=== PATIENT | female | born 1970 | race American Indian/Alaskan Native ===

== ENCOUNTER 2019-10-06 01:22 | Inpatient (IN) | payer OTHER ==
[2019-10-06 02:24] LABS: Hematocrit 33.8 % (30.3-42.9); Hemoglobin 11.1 gm/dl (10.1-14.3); Mean Corpuscular HGB Conc 33 % (30-34); Mean Corpuscular Volume 76 fl (79-97); Platelet Count 335 K/mm3 (140-440); Red Blood Count 4.42 M/mm3 (3.65-5.03); Red Cell Distribution Width 15.7 % (13.2-15.2)
[2019-10-06 02:49] LABS: Albumin 4.6 g/dL (3.9-5)
[2019-10-06 03:41] LABS: Band Neutrophils # (Manual) 0.6 K/mm3; Basophils % (Manual) 0 % (0.0-1.8); Eosinophils % (Manual) 0 % (0.0-4.3); Hypochromasia 1+; Total Cells Counted 100
[2019-10-06 03:42] LABS: Platelet Estimate Consistent w Auto; Target Cells Few
[2019-10-06] MEDS ORDERED: SODIUM CHLORIDE 0.9% 1000 ML IV SOLN IV ONE (04:33)
[2019-10-06] MEDS ORDERED: MORPHINE 4 MG/1 ML INJ IV ONE (04:34)
[2019-10-06] MEDS ORDERED: ONDANSETRON 4 MG/2 ML INJ IV ONE (04:34)
--- NOTE | 2019-10-06 04:36 | Event Note ---
Date: 10/06/19 Medical screening examination: 49-year-old female, denies past medical history, presenting with epigastric, right upper quadrant pain that radiates to the back, nausea and vomiting. She is fairly tender, with a positive Rowan sign. Found to be tachycardic, with a leukocytosis, left shift and elevated band percentage. Concerning for biliary pathology. Patient to be resuscitated per the sepsis pathway, antibiotics ordered, pain medication, nausea medication ordered, right upper quadrant ultrasound ordered, additional laboratory studies ordered, anticipated admission, will likely require evaluation by either gastroenterology, general surgery or both. Vital Signs 10/06/19 10/06/19 01:38 01:39 Temperature 98.3 F Pulse Rate 94 H Blood Pressure 105/66 O2 Sat by Pulse 99 Oximetry Lab Results 10/06/19 10/06/19 Range/Units 01:57 01:57 WBC 14.7 H (4.5-11.0) K/mm3 RBC 4.42 (3.65-5.03) M/mm3 Hgb 11.1 (10.1-14.3) gm/dl Hct 33.8 (30.3-42.9) % MCV 76 L (79-97) fl MCH 25 L (28-32) pg MCHC 33 (30-34) % RDW 15.7 H (13.2-15.2) % Plt Count 335 (140-440) K/mm3 Add Manual Diff Complete Total Counted 100 Seg Neutrophils % Materials Specialist Seg Neuts % (Manual) 88.0 H (40.0-70.0) % Band Neutrophils % 4.0 % Lymphocytes % (Manual) 7.0 L (13.4-35.0) % Reactive Lymphs % (Man) 0 % Monocytes % (Manual) 1.0 (0.0-7.3) % Eosinophils % (Manual) 0 (0.0-4.3) % Basophils % (Manual) 0 (0.0-1.8) % Metamyelocytes % 0 % Myelocytes % 0 % Promyelocytes % 0 % Blast Cells % 0 % Nucleated RBC % Not Reportable Seg Neutrophils # Man 12.9 H (1.8-7.7) K/mm3 Band Neutrophils # 0.6 K/mm3 Lymphocytes # (Manual) 1.0 L (1.2-5.4) K/mm3 Abs React Lymphs (Man) 0.0 K/mm3 Monocytes # (Manual) 0.1 (0.0-0.8) K/mm3 Eosinophils # (Manual) 0.0 (0.0-0.4) K/mm3 Basophils # (Manual) 0.0 (0.0-0.1) K/mm3 Metamyelocytes # 0.0 K/mm3 Myelocytes # 0.0 K/mm3 Promyelocytes # 0.0 K/mm3 Blast Cells # 0.0 K/mm3 WBC Morphology Not Reportable Hypersegmented Neuts Not Reportable Hyposegmented Neuts Not Reportable Hypogranular Neuts Not Reportable Smudge Cells Not Reportable Toxic Granulation Not Reportable Toxic Vacuolation Not Reportable Dohle Bodies Not Reportable Pelger-Huet Anomaly Not Reportable Meg Rods Not Reportable Platelet Estimate Consistent w auto Clumped Platelets Not Reportable Plt Clumps, EDTA Not Reportable Large Platelets Not Reportable Giant Platelets Not Reportable Platelet Satelliting Not Reportable Plt Morphology Comment Not Reportable RBC Morphology Not Reportable Dimorphic RBCs Not Reportable Polychromasia Not Reportable Hypochromasia 1+ Poikilocytosis Not Reportable Anisocytosis Not Reportable Microcytosis Not Reportable Macrocytosis Not Reportable Spherocytes Not Reportable Pappenheimer Bodies Not Reportable Sickle Cells Not Reportable Target Cells Few Tear Drop Cells Not Reportable Ovalocytes Not Reportable Helmet Cells Not Reportable Chaves-Ferney Bodies Not Reportable Brewster Rings Not Reportable Buchanan Cells Not Reportable Bite Cells Not Reportable Crenated Cell Not Reportable Elliptocytes Not Reportable Acanthocytes (Spur) Not Reportable Rouleaux Not Reportable Hemoglobin C Crystals Not Reportable Schistocytes Not Reportable Malaria parasites Not Reportable Benoit Bodies Not Reportable Hem Pathologist Commnt No Sodium 141 (137-145) mmol/L Potassium 4.3 (3.6-5.0) mmol/L Chloride 101.6 (98-107) mmol/L Carbon Dioxide 19 L (22-30) mmol/L Anion Gap 25 mmol/L BUN 16 (7-17) mg/dL Creatinine 1.1 (0.7-1.2) mg/dL Estimated GFR 52 ml/min BUN/Creatinine Ratio 15 % Glucose 145 H (65-100) mg/dL Calcium 10.0 (8.4-10.2) mg/dL Total Bilirubin 1.60 H (0.1-1.2) mg/dL AST 1619 H (5-40) units/L ALT 698 H (7-56) units/L Alkaline Phosphatase 335 H (35-129) units/L Total Protein 7.9 (6.3-8.2) g/dL Albumin 4.6 (3.9-5) g/dL Albumin/Globulin Ratio 1.4 %
[2019-10-06] MEDS ORDERED: PIPERACIL/TAZOBACTA 4.5/NS 100 4.5 GM/100 ML VIAL IV ONE (05:00)
--- NOTE | 2019-10-06 05:09 | XRay Report ---
CHEST 1 VIEW INDICATION / CLINICAL INFORMATION: abd pain n/v. COMPARISON: None available. FINDINGS: SUPPORT DEVICES: None. HEART / MEDIASTINUM: No significant abnormality. LUNGS / PLEURA: No significant pulmonary or pleural abnormality.. No pneumothorax. ADDITIONAL FINDINGS: No significant additional findings. IMPRESSION: 1. No acute findings. Signer Name: Buster Dang MD Signed: 10/06/2019 5:04 AM Workstation Name: [id number]
[2019-10-06 05:46] LABS: Hepatitis B Surface Antigen Non-Reactive (Negative); Hepatitis C Virus Antibody Non-Reactive (NonReactive)
[2019-10-06 05:49] LABS: INR 1.01 (0.87-1.13)
[2019-10-06 05:50] LABS: Partial Thromboplastin Time 25.4 Sec. (24.2-36.6)
--- NOTE | 2019-10-06 06:07 | Ultrasound Report ---
ULTRASOUND ABDOMEN, LIMITED (RIGHT UPPER QUADRANT) INDICATION: ruq pain. COMPARISON: None available. FINDINGS: Pancreas: Visualized portion shows no significant abnormality. Liver: Normal. Gallbladder: Gallbladder wall is mildly thickened. This is not specific. There is cholelithiasis. The re is sludge in the lumen of the gallbladder. Bile ducts: Normal. Common Bile Duct measures 5 mm. Free fluid: None. Additional Findings: None. IMPRESSION: 1. There is cholelithiasis. There is sludge in the lumen of the gallbladder. The gallbladder wall is mildly thickened. This is not specific in the setting of stones. If cholecyst itis is a clinical concern, nuclear medicine HIDA scan can be performed to further evaluate. Signer Name: Buster Dang MD Signed: 10/06/2019 6:02 AM Workstation Name: [id number]
[2019-10-06 06:15] LABS: Bilirubin,Urine NEG (Negative); Blood,Urine NEG (Negative); Color,Urine Amber (Yellow); Mucus,Urine 3+ /HPF
--- NOTE | 2019-10-06 07:12 | Emergency Department Report ---
ED Abdominal Pain HPI - General Chief Complaint: Abdominal Pain Stated Complaint: ABD PAIN Time Seen by Provider: 10/06/19 06:16 Source: patient, EMS Mode of arrival: Wheelchair Limitations: No Limitations - History of Present Illness Initial Comments: This is a very pleasant 49-year-old female that reports right upper quadrant to mid abdominal pain which does not radiate which she has had for months. It became worse last night. She vomited. She does not report any fever or chills. She states that the pain has been postprandial in the past. She is not consulted with the physician up until last night when it became worse. She is not currently nauseated. She doesn't report any signs of GI bleeding. Pain is a dull ache when present. MD Complaint: abdominal pain -: Gradual, month(s) Location: RUQ, epigastric Radiation: none Migration to: no migration Severity: moderate Severity scale (0 -10): 7 Quality: aching Consistency: intermittent Improves With: nothing Worsens With: eating Associated Symptoms: denies other symptoms, nausea, vomiting - Related Data Allergies Allergy/AdvReac Type Severity Reaction Status Date / Time No Known Allergies Allergy Verified 10/06/19 01:39 ED Review of Systems ROS: Stated complaint: ABD PAIN Other details as noted in HPI Constitutional: denies: chills, fever Eyes: denies: eye pain, eye discharge, vision change ENT: denies: ear pain, throat pain Respiratory: denies: cough, shortness of breath, wheezing Cardiovascular: denies: chest pain, palpitations Endocrine: no symptoms reported Gastrointestinal: abdominal pain, nausea, vomiting. denies: diarrhea Genitourinary: denies: urgency, dysuria, discharge Musculoskeletal: denies: back pain, joint swelling, arthralgia Skin: denies: rash, lesions Neurological: denies: headache, weakness, paresthesias Psychiatric: denies: anxiety, depression Hematological/Lymphatic: denies: easy bleeding, easy bruising ED Past Medical Hx - Past Medical History Previous Medical History?: No - Surgical History Past Surgical History?: No - Social History Smoking Status: Current Every Day Smoker Substance Use Type: None ED Physical Exam - General Limitations: No Limitations General appearance: alert, in no apparent distress - Head Head exam: Present: atraumatic, normocephalic - Eye Eye exam: Present: normal appearance. Absent: scleral icterus - ENT ENT exam: Present: mucous membranes moist - Neck Neck exam: Present: normal inspection - Respiratory Respiratory exam: Present: normal lung sounds bilaterally. Absent: respiratory distress - Cardiovascular Cardiovascular Exam: Present: regular rate, normal rhythm. Absent: systolic murmur, diastolic murmur, rubs, gallop - GI/Abdominal GI/Abdominal exam: Present: soft, tenderness (mild right upper quadrant, negative Rowan's, no guarding), normal bowel sounds. Absent: distended, guarding, rebound, rigid, organomegaly, mass, bruit, pulsatile mass, hernia - Extremities Exam Extremities exam: Present: normal inspection - Back Exam Back exam: Present: normal inspection - Neurological Exam Neurological exam: Present: alert, oriented X3, CN II-XII intact. Absent: motor sensory deficit - Psychiatric Psychiatric exam: Present: normal affect, normal mood - Skin Skin exam: Present: warm, dry, intact, normal color. Absent: rash ED Course Vital Signs 10/06/19 10/06/19 10/06/19 01:38 01:39 04:10 Temperature 98.3 F Pulse Rate 94 H 128 H Respiratory 17 Rate Blood Pressure 105/66 Blood Pressure [Right] O2 Sat by Pulse 99 Oximetry 10/06/19 10/06/19 10/06/19 04:15 04:30 04:46 Temperature Pulse Rate 99 H 109 H 115 H Respiratory 16 22 20 Rate Blood Pressure 124/72 127/66 127/66 Blood Pressure [Right] O2 Sat by Pulse Oximetry 10/06/19 10/06/19 10/06/19 05:00 05:15 05:30 Temperature Pulse Rate 118 H 107 H 104 H Respiratory 21 17 13 Rate Blood Pressure 127/66 112/58 112/58 Blood Pressure [Right] O2 Sat by Pulse Oximetry 10/06/19 10/06/19 10/06/19 05:58 07:28 08:21 Temperature 98.5 F 98.5 F Pulse Rate 97 H 62 Respiratory 16 16 16 Rate Blood Pressure Blood Pressure 113/38 119/77 [Right] O2 Sat by Pulse 100 100 Oximetry - Reevaluation(s) Reevaluation #1: Patient had been given Zosyn by my predecessor a consideration of her lactic acid level of 4. On my evaluation she does not look toxic. Certainly she may have cholecystitis although she does not have a fever or a white count. Her ultrasound did show wall thickening but no pericholecystic fluid. There was a problem getting her lipase. It is now reported as greater than 299. It is unknown what the actual level is. I have spoke to Dr. Umana informing him of the consult which has been placed by Doctor Art. A CT abdomen and pelvis has been performed. It shows possible cholecystitis. The pancreas appeared normal. Her lactic acid level for his bit curious. I will repeat it. The patient has been admitted. 10/06/19 08:32 ED Medical Decision Making - Lab Data Result diagrams: 10/06/19 01:57 10/06/19 01:57 Laboratory Results - last 24 hr 10/06/19 10/06/19 10/06/19 01:57 01:57 04:58 WBC 14.7 H RBC 4.42 Hgb 11.1 Hct 33.8 MCV 76 L MCH 25 L MCHC 33 RDW 15.7 H Plt Count 335 Add Manual Diff Complete Total Counted 100 Seg Neutrophils % [place] Seg Neuts % (Manual) 88.0 H Band Neutrophils % 4.0 Lymphocytes % (Manual) 7.0 L Reactive Lymphs % (Man) 0 Monocytes % (Manual) 1.0 Eosinophils % (Manual) 0 Basophils % (Manual) 0 Metamyelocytes % 0 Myelocytes % 0 Promyelocytes % 0 Blast Cells % 0 Nucleated RBC % Not Reportable Seg Neutrophils # Man 12.9 H Band Neutrophils # 0.6 Lymphocytes # (Manual) 1.0 L Abs React Lymphs (Man) 0.0 Monocytes # (Manual) 0.1 Eosinophils # (Manual) 0.0 Basophils # (Manual) 0.0 Metamyelocytes # 0.0 Myelocytes # 0.0 Promyelocytes # 0.0 Blast Cells # 0.0 WBC Morphology Not Reportable Hypersegmented Neuts Not Reportable Hyposegmented Neuts Not Reportable Hypogranular Neuts Not Reportable Smudge Cells Not Reportable Toxic Granulation Not Reportable Toxic Vacuolation Not Reportable Dohle Bodies Not Reportable Pelger-Huet Anomaly Not Reportable Meg Rods Not Reportable Platelet Estimate Consistent w auto Clumped Platelets Not Reportable Plt Clumps, EDTA Not Reportable Large Platelets Not Reportable Giant Platelets Not Reportable Platelet Satelliting Not Reportable Plt Morphology Comment Not Reportable RBC Morphology Not Reportable Dimorphic RBCs Not Reportable Polychromasia Not Reportable Hypochromasia 1+ Poikilocytosis Not Reportable Anisocytosis Not Reportable Microcytosis Not Reportable Macrocytosis Not Reportable Spherocytes Not Reportable Pappenheimer Bodies Not Reportable Sickle Cells Not Reportable Target Cells Few Tear Drop Cells Not Reportable Ovalocytes Not Reportable Helmet Cells Not Reportable Chaves-Premont Bodies Not Reportable [place] Rings Not Reportable [place] Cells Not Reportable Bite Cells Not Reportable Crenated Cell Not Reportable Elliptocytes Not Reportable Acanthocytes (Spur) Not Reportable Rouleaux Not Reportable Hemoglobin C Crystals Not Reportable Schistocytes Not Reportable Malaria parasites Not Reportable Benoit Bodies Not Reportable Hem Pathologist Commnt No PT 13.4 INR 1.01 APTT 25.4 Sodium 141 Potassium 4.3 Chloride 101.6 Carbon Dioxide 19 L Anion Gap 25 BUN 16 Creatinine 1.1 Estimated GFR 52 BUN/Creatinine Ratio 15 Glucose 145 H Lactic Acid Calcium 10.0 Magnesium Total Bilirubin 1.60 H AST 1619 H ALT 698 H Alkaline Phosphatase 335 H Total Creatine Kinase Total Protein 7.9 Albumin 4.6 Albumin/Globulin Ratio 1.4 Urine Color Urine Turbidity Urine pH Ur Specific Novelty Urine Protein Urine Glucose (UA) Urine Ketones Urine Blood Urine Nitrite Urine Bilirubin Urine Urobilinogen Ur Leukocyte Esterase Urine WBC (Auto) Urine RBC (Auto) U Epithel Cells (Auto) Urine Mucus Acetaminophen Hepatitis A IgM Ab Hep Bs Antigen Hep B Core IgM Ab Hepatitis C Antibody 10/06/19 10/06/19 10/06/19 04:58 04:58 04:58 WBC RBC Hgb Hct MCV MCH MCHC RDW Plt Count Add Manual Diff Total Counted Seg Neutrophils % Seg Neuts % (Manual) Band Neutrophils % Lymphocytes % (Manual) Reactive Lymphs % (Man) Monocytes % (Manual) Eosinophils % (Manual) Basophils % (Manual) Metamyelocytes % Myelocytes % Promyelocytes % Blast Cells % Nucleated RBC % Seg Neutrophils # Man Band Neutrophils # Lymphocytes # (Manual) Abs React Lymphs (Man) Monocytes # (Manual) Eosinophils # (Manual) Basophils # (Manual) Metamyelocytes # Myelocytes # Promyelocytes # Blast Cells # WBC Morphology Hypersegmented Neuts Hyposegmented Neuts Hypogranular Neuts Smudge Cells Toxic Granulation Toxic Vacuolation Dohle Bodies Pelger-Huet Anomaly Meg Rods Platelet Estimate Clumped Platelets Plt Clumps, EDTA Large Platelets Giant Platelets Platelet Satelliting Plt Morphology Comment RBC Morphology Dimorphic RBCs Polychromasia Hypochromasia Poikilocytosis Anisocytosis Microcytosis Macrocytosis Spherocytes Pappenheimer Bodies Sickle Cells Target Cells Tear Drop Cells Ovalocytes Helmet Cells Chaves-Premont Bodies [place] Rings Francis Cells Bite Cells Crenated Cell Elliptocytes Acanthocytes (Spur) Rouleaux Hemoglobin C Crystals Schistocytes Malaria parasites Benoit Bodies Hem Pathologist Commnt PT INR APTT Sodium Potassium Chloride Carbon Dioxide Anion Gap BUN Creatinine Estimated GFR BUN/Creatinine Ratio Glucose Lactic Acid 4.00 H* Calcium Magnesium 1.80 Total Bilirubin AST ALT Alkaline Phosphatase Total Creatine Kinase 61 Total Protein Albumin Albumin/Globulin Ratio Urine Color Urine Turbidity Urine pH Ur Specific Novelty Urine Protein Urine Glucose (UA) Urine Ketones Urine Blood Urine Nitrite Urine Bilirubin Urine Urobilinogen Ur Leukocyte Esterase Urine WBC (Auto) Urine RBC (Auto) U Epithel Cells (Auto) Urine Mucus Acetaminophen Hepatitis A IgM Ab Non-reactive Hep Bs Antigen Non-reactive Hep B Core IgM Ab Non-reactive Hepatitis C Antibody Non-reactive 10/06/19 10/06/19 04:58 05:52 WBC RBC Hgb Hct MCV MCH MCHC RDW Plt Count Add Manual Diff Total Counted Seg Neutrophils % Seg Neuts % (Manual) Band Neutrophils % Lymphocytes % (Manual) Reactive Lymphs % (Man) Monocytes % (Manual) Eosinophils % (Manual) Basophils % (Manual) Metamyelocytes % Myelocytes % Promyelocytes % Blast Cells % Nucleated RBC % Seg Neutrophils # Man Band Neutrophils # Lymphocytes # (Manual) Abs React Lymphs (Man) Monocytes # (Manual) Eosinophils # (Manual) Basophils # (Manual) Metamyelocytes # Myelocytes # Promyelocytes # Blast Cells # WBC Morphology Hypersegmented Neuts Hyposegmented Neuts Hypogranular Neuts Smudge Cells Toxic Granulation Toxic Vacuolation Dohle Bodies Pelger-Huet Anomaly Meg Rods Platelet Estimate Clumped Platelets Plt Clumps, EDTA Large Platelets Giant Platelets Platelet Satelliting Plt Morphology Comment RBC Morphology Dimorphic RBCs Polychromasia Hypochromasia Poikilocytosis Anisocytosis Microcytosis Macrocytosis Spherocytes Pappenheimer Bodies Sickle Cells Target Cells Tear Drop Cells Ovalocytes Helmet Cells Chaves-Premont Bodies [place] Cells Bite Cells Crenated Cell Elliptocytes Acanthocytes (Spur) Rouleaux Hemoglobin C Crystals Schistocytes Malaria parasites Benoit Bodies Hem Pathologist Commnt PT INR APTT Sodium Potassium Chloride Carbon Dioxide Anion Gap BUN Creatinine Estimated GFR BUN/Creatinine Ratio Glucose Lactic Acid Calcium Magnesium Total Bilirubin AST ALT Alkaline Phosphatase Total Creatine Kinase Total Protein Albumin Albumin/Globulin Ratio Urine Color Emilia Urine Turbidity Cloudy Urine pH 5.0 Ur Specific Novelty 1.033 H Urine Protein 30 mg/dl Urine Glucose (UA) Neg Urine Ketones Tr Urine Blood Neg Urine Nitrite Neg Urine Bilirubin Neg Urine Urobilinogen 2.0 Ur Leukocyte Esterase Sm Urine WBC (Auto) 2.0 Urine RBC (Auto) 4.0 U Epithel Cells (Auto) 35.0 H Urine Mucus 3+ Acetaminophen < 5.0 L Hepatitis A IgM Ab Hep Bs Antigen Hep B Core IgM Ab Hepatitis C Antibody Laboratory Results - last 24 hr 10/06/19 10/06/19 10/06/19 01:57 01:57 04:58 WBC 14.7 H RBC 4.42 Hgb 11.1 Hct 33.8 MCV 76 L MCH 25 L MCHC 33 RDW 15.7 H Plt Count 335 Add Manual Diff Complete Total Counted 100 Seg Neutrophils % [place] Seg Neuts % (Manual) 88.0 H Band Neutrophils % 4.0 Lymphocytes % (Manual) 7.0 L Reactive Lymphs % (Man) 0 Monocytes % (Manual) 1.0 Eosinophils % (Manual) 0 Basophils % (Manual) 0 Metamyelocytes % 0 Myelocytes % 0 Promyelocytes % 0 Blast Cells % 0 Nucleated RBC % Not Reportable Seg Neutrophils # Man 12.9 H Band Neutrophils # 0.6 Lymphocytes # (Manual) 1.0 L Abs React Lymphs (Man) 0.0 Monocytes # (Manual) 0.1 Eosinophils # (Manual) 0.0 Basophils # (Manual) 0.0 Metamyelocytes # 0.0 Myelocytes # 0.0 Promyelocytes # 0.0 Blast Cells # 0.0 WBC Morphology Not Reportable Hypersegmented Neuts Not Reportable Hyposegmented Neuts Not Reportable Hypogranular Neuts Not Reportable Smudge Cells Not Reportable Toxic Granulation Not Reportable Toxic Vacuolation Not Reportable Dohle Bodies Not Reportable Pelger-Huet Anomaly Not Reportable Meg Rods Not Reportable Platelet Estimate Consistent w auto Clumped Platelets Not Reportable Plt Clumps, EDTA Not Reportable Large Platelets Not Reportable Giant Platelets Not Reportable Platelet Satelliting Not Reportable Plt Morphology Comment Not Reportable RBC Morphology Not Reportable Dimorphic RBCs Not Reportable Polychromasia Not Reportable Hypochromasia 1+ Poikilocytosis Not Reportable Anisocytosis Not Reportable Microcytosis Not Reportable Macrocytosis Not Reportable Spherocytes Not Reportable Pappenheimer Bodies Not Reportable Sickle Cells Not Reportable Target Cells Few Tear Drop Cells Not Reportable Ovalocytes Not Reportable Helmet Cells Not Reportable Chaves-Premont Bodies Not Reportable [place] Rings Not Reportable [place] Cells Not Reportable Bite Cells Not Reportable Crenated Cell Not Reportable Elliptocytes Not Reportable Acanthocytes (Spur) Not Reportable Rouleaux Not Reportable Hemoglobin C Crystals Not Reportable Schistocytes Not Reportable Malaria parasites Not Reportable [place]oit Bodies Not Reportable Hem Pathologist Commnt No PT 13.4 INR 1.01 APTT 25.4 Sodium 141 Potassium 4.3 Chloride 101.6 Carbon Dioxide 19 L Anion Gap 25 BUN 16 Creatinine 1.1 Estimated GFR 52 BUN/Creatinine Ratio 15 Glucose 145 H Lactic Acid Calcium 10.0 Magnesium Total Bilirubin 1.60 H AST 1619 H ALT 698 H Alkaline Phosphatase 335 H Total Creatine Kinase Total Protein 7.9 Albumin 4.6 Albumin/Globulin Ratio 1.4 Lipase Urine Color Urine Turbidity Urine pH Ur Specific Novelty Urine Protein Urine Glucose (UA) Urine Ketones Urine Blood Urine Nitrite Urine Bilirubin Urine Urobilinogen Ur Leukocyte Esterase Urine WBC (Auto) Urine RBC (Auto) U Epithel Cells (Auto) Urine Mucus Acetaminophen Hepatitis A IgM Ab Hep Bs Antigen Hep B Core IgM Ab Hepatitis C Antibody 10/06/19 10/06/19 10/06/19 04:58 04:58 04:58 WBC RBC Hgb Hct MCV MCH MCHC RDW Plt Count Add Manual Diff Total Counted Seg Neutrophils % Seg Neuts % (Manual) Band Neutrophils % Lymphocytes % (Manual) Reactive Lymphs % (Man) Monocytes % (Manual) Eosinophils % (Manual) Basophils % (Manual) Metamyelocytes % Myelocytes % Promyelocytes % Blast Cells % Nucleated RBC % Seg Neutrophils # Man Band Neutrophils # Lymphocytes # (Manual) Abs React Lymphs (Man) Monocytes # (Manual) Eosinophils # (Manual) Basophils # (Manual) Metamyelocytes # Myelocytes # Promyelocytes # Blast Cells # WBC Morphology Hypersegmented Neuts Hyposegmented Neuts Hypogranular Neuts Smudge Cells Toxic Granulation Toxic Vacuolation Dohle Bodies Pelger-Huet Anomaly Meg Rods Platelet Estimate Clumped Platelets Plt Clumps, EDTA Large Platelets Giant Platelets Platelet Satelliting Plt Morphology Comment RBC Morphology Dimorphic RBCs Polychromasia Hypochromasia Poikilocytosis Anisocytosis Microcytosis Macrocytosis Spherocytes Pappenheimer Bodies Sickle Cells Target Cells Tear Drop Cells Ovalocytes Helmet Cells Chaves-Premont Bodies [place] Rings Francis Cells Bite Cells Crenated Cell Elliptocytes Acanthocytes (Spur) Rouleaux Hemoglobin C Crystals Schistocytes Malaria parasites [place]oit Bodies Hem Pathologist Commnt PT INR APTT Sodium Potassium Chloride Carbon Dioxide Anion Gap BUN Creatinine Estimated GFR BUN/Creatinine Ratio Glucose Lactic Acid 4.00 H* Calcium Magnesium 1.80 Total Bilirubin AST ALT Alkaline Phosphatase Total Creatine Kinase 61 Total Protein Albumin Albumin/Globulin Ratio Lipase > 299 H Urine Color Urine Turbidity Urine pH Ur Specific Novelty Urine Protein Urine Glucose (UA) Urine Ketones Urine Blood Urine Nitrite Urine Bilirubin Urine Urobilinogen Ur Leukocyte Esterase Urine WBC (Auto) Urine RBC (Auto) U Epithel Cells (Auto) Urine Mucus Acetaminophen Hepatitis A IgM Ab Non-reactive Hep Bs Antigen Non-reactive Hep B Core IgM Ab Non-reactive Hepatitis C Antibody Non-reactive 10/06/19 10/06/19 04:58 05:52 WBC RBC Hgb Hct MCV MCH MCHC RDW Plt Count Add Manual Diff Total Counted Seg Neutrophils % Seg Neuts % (Manual) Band Neutrophils % Lymphocytes % (Manual) Reactive Lymphs % (Man) Monocytes % (Manual) Eosinophils % (Manual) Basophils % (Manual) Metamyelocytes % Myelocytes % Promyelocytes % Blast Cells % Nucleated RBC % Seg Neutrophils # Man Band Neutrophils # Lymphocytes # (Manual) Abs React Lymphs (Man) Monocytes # (Manual) Eosinophils # (Manual) Basophils # (Manual) Metamyelocytes # Myelocytes # Promyelocytes # Blast Cells # WBC Morphology Hypersegmented Neuts Hyposegmented Neuts Hypogranular Neuts Smudge Cells Toxic Granulation Toxic Vacuolation Dohle Bodies Pelger-Huet Anomaly Meg Rods Platelet Estimate Clumped Platelets Plt Clumps, EDTA Large Platelets Giant Platelets Platelet Satelliting Plt Morphology Comment RBC Morphology Dimorphic RBCs Polychromasia Hypochromasia Poikilocytosis Anisocytosis Microcytosis Macrocytosis Spherocytes Pappenheimer Bodies Sickle Cells Target Cells Tear Drop Cells Ovalocytes Helmet Cells Chaves-Premont Bodies [place] Cells Bite Cells Crenated Cell Elliptocytes Acanthocytes (Spur) Rouleaux Hemoglobin C Crystals Schistocytes Malaria parasites [place] Bodies Hem Pathologist Commnt PT INR APTT Sodium Potassium Chloride Carbon Dioxide Anion Gap BUN Creatinine Estimated GFR BUN/Creatinine Ratio Glucose Lactic Acid Calcium Magnesium Total Bilirubin AST ALT Alkaline Phosphatase Total Creatine Kinase Total Protein Albumin Albumin/Globulin Ratio Lipase Urine Color Emilia Urine Turbidity Cloudy Urine pH 5.0 Ur Specific Novelty 1.033 H Urine Protein 30 mg/dl Urine Glucose (UA) Neg Urine Ketones Tr Urine Blood Neg Urine Nitrite Neg Urine Bilirubin Neg Urine Urobilinogen 2.0 Ur Leukocyte Esterase Sm Urine WBC (Auto) 2.0 Urine RBC (Auto) 4.0 U Epithel Cells (Auto) 35.0 H Urine Mucus 3+ Acetaminophen < 5.0 L Hepatitis A IgM Ab Hep Bs Antigen Hep B Core IgM Ab Hepatitis C Antibody - Radiology Data Radiology results: report reviewed Critical care attestation.: If time is entered above; I have spent that time in minutes in the direct care of this critically ill patient, excluding procedure time. ED Disposition Clinical Impression: Acute cholecystitis Disposition: -09 OP ADMIT IP TO THIS HOSP Is pt being admited?: Yes Does the pt Need Aspirin: No Condition: Stable Instructions: Abdominal Pain (ED) Referrals: TEN DE PAZ MD [Primary Care Provider] - 3-5 Days Time of Disposition: 08:33
--- NOTE | 2019-10-06 07:17 | Cat Scan Report ---
CT ABDOMEN AND PELVIS WITH CONTRAST HISTORY: Pt complains of abdominal Pain, Lactic Acidosis, see US result. Omnipaque 300 / 100ml's was used for this exam.. COMPARISON: Abdominal ultrasound from today TECHNIQUE: CT images of the abdomen and pelvis were obtained following administration of intravenous contrast. All CT scans at this location are performed using CT dose reduction for ALARA by means of automated exposure control. CONTRAST: 100 ml of intravenous contrast administered. FINDINGS: Lungs/bones: The lung bases are clear. Very mild degenerative changes are present in the spine with nothing acute. Abdomen/pelvis: The gallbladder demonstrates gross wall thickening circumferentially and is distende d. There is a punctate stone in the region of the proximal CBD/cystic duct cyst. There is otherwise n o appreciable intrahepatic or extrahepatic biliary ductal dilatation. The liver, spleen, pancreas, adrenals, kidneys, and proximal GI tract appear unremarkable. Urinary bladder and reproductive organs are normal with no pelvic free fluid. There is mild colonic d iverticulosis with no acute inflammatory change identified. The appendix and terminal ileum appear no rmal. IMPRESSION: 1. Although there is a relative lack of radiopaque stone disease, findings are suggestive of acute ch olecystitis. Signer Name: Gunnar Orourke MD Signed: 10/06/2019 7:13 AM Workstation Name: [id number]
--- NOTE | 2019-10-06 07:49 | History and Physical Report ---
History of Present Illness Date of examination: 10/06/19 Date of admission: 10/06/19 Chief complaint: Right upper quadrant abdominal pain History of present illness: 49-year-old -[place] female patient with no significant past medical history not on any medications presented to the emergency room with abdominal pain mainly in the right upper quadrant and around umbilicus area. Patient has been having these symptoms for some time however did not seek medical attention. Patient reports that the symptoms have become worse and prompted her to come to the emergency room. Patient reports that her pain is associated with nausea and vomiting, worse with food intake. Initial work-up with CT abdomen and pelvis, abdominal ultrasound, findings consistent with acute cholecystitis, acute pancreatitis, acute transaminitis And cholelithiasis. Patient has history of ongoing tobacco use Past History Past Medical History: other (Endometriosis) Past Surgical History: No surgical history Social history: lives with family, smoking. denies: alcohol abuse, prescription drug abuse, IV drug use Family history: hypertension Medications and Allergies Allergies Allergy/AdvReac Type Severity Reaction Status Date / Time No Known Allergies Allergy Verified 10/06/19 01:39 Review of Systems Constitutional: no weight loss, no weight gain, no fever, no chills Cardiovascular: no chest pain, no palpitations Respiratory: no cough, no shortness of breath Gastrointestinal: abdominal pain, nausea, vomiting Genitourinary Female: no pelvic pain, no flank pain Musculoskeletal: no myalgias, no arthritis Integumentary: no rash, no lesions Psychiatric: no anxiety, no depression Endocrine: no cold intolerance, no heat intolerance Hematologic/Lymphatic: no easy bruising, no easy bleeding Allergic/Immunologic: no urticaria, no allergic rhinitis Exam - Constitutional Vitals: Temp Pulse Resp BP Pulse Ox 98.5 F 97 H 16 113/38 100 10/06/19 07:28 10/06/19 07:28 10/06/19 07:28 10/06/19 07:28 10/06/19 07:28 General appearance: Present: mild distress, well-nourished - EENT Eyes: Present: PERRL, EOM intact - Neck Neck: Present: supple, normal ROM - Respiratory Respiratory effort: normal Respiratory: bilateral: diminished, negative: rales, rhonchi, wheezing - Cardiovascular Rhythm: regular Heart Sounds: Present: S1 & S2 - Extremities Extremities: no ischemia, No edema - Abdominal General gastrointestinal: Present: soft, non-tender, non-distended, normal bowel sounds - Integumentary Integumentary: Present: clear, warm - Musculoskeletal Musculoskeletal: strength equal bilaterally - Psychiatric Psychiatric: appropriate mood/affect, cooperative - Neurologic Neurologic: CNII-XII intact, moves all extremities Results - Labs CBC & Chem 7: 10/06/19 01:57 10/06/19 01:57 Labs: Abnormal lab results 10/06/19 10/06/19 10/06/19 Range/Units 01:57 01:57 04:58 WBC 14.7 H (4.5-11.0) K/mm3 MCV 76 L (79-97) fl MCH 25 L (28-32) pg RDW 15.7 H (13.2-15.2) % Seg Neuts % (Manual) 88.0 H (40.0-70.0) % Lymphocytes % (Manual) 7.0 L (13.4-35.0) % Seg Neutrophils # Man 12.9 H (1.8-7.7) K/mm3 Lymphocytes # (Manual) 1.0 L (1.2-5.4) K/mm3 Carbon Dioxide 19 L (22-30) mmol/L Glucose 145 H (65-100) mg/dL Lactic Acid 4.00 H* (0.7-2.0) mmol/L Total Bilirubin 1.60 H (0.1-1.2) mg/dL AST 1619 H (5-40) units/L ALT 698 H (7-56) units/L Alkaline Phosphatase 335 H (35-129) units/L Lipase (13-60) units/L Ur Specific [place] (1.003-1.030) U Epithel Cells (Auto) (0-13.0) /HPF Acetaminophen (10.0-30.0) ug/mL 10/06/19 10/06/19 10/06/19 Range/Units 04:58 04:58 05:52 WBC (4.5-11.0) K/mm3 MCV (79-97) fl MCH (28-32) pg RDW (13.2-15.2) % Seg Neuts % (Manual) (40.0-70.0) % Lymphocytes % (Manual) (13.4-35.0) % Seg Neutrophils # Man (1.8-7.7) K/mm3 Lymphocytes # (Manual) (1.2-5.4) K/mm3 Carbon Dioxide (22-30) mmol/L Glucose (65-100) mg/dL Lactic Acid (0.7-2.0) mmol/L Total Bilirubin (0.1-1.2) mg/dL AST (5-40) units/L ALT (7-56) units/L Alkaline Phosphatase (35-129) units/L Lipase > 299 H (13-60) units/L Ur Specific [place] 1.033 H (1.003-1.030) U Epithel Cells (Auto) 35.0 H (0-13.0) /HPF Acetaminophen < 5.0 L (10.0-30.0) ug/mL Assessment and Plan --Acute gallstone pancreatitis --Acute transaminitis --Acute cholecystitis --Cholelithiasis --Leukocytosis --Lactic acidosis --Sepsis secondary to acute cholecystitis --Ongoing tobacco use Plan; N.p.o. status IV fluids Pain medications Empiric antibiotics HIDA scan/MRCP/ERCP Smoking cessation counseling DVT prophylaxis GI consultation[discussed with Dr. Umana and Cass] Surgery consultation Closely monitor the patient and adjust the management as needed Plan of care reviewed with the patient and her nurse
--- NOTE | 2019-10-06 10:19 | Gastroenterology Consultation ---
History of Present Illness - Reason for Consult Consult date: 10/06/19 pancreatitis Requesting physician: JEFFERY CAVAZOS - History of Present Illness Patient is a 49 y/o female with no significant PMH who presented to ED with c/o acute onset epigastric pain that began yesterday with associated N/V. Symptoms exacerbated with PO intake. Upon admission, labs revealed elevated LFTs and lipase to which GI has been consulted for pancreatitis. Abd CT with findings suggestive of acute cholecystitis with abd U/S showing cholelithiasis, sludge in lumen of gallbladder with gallbladder mildly thickened. This morning patient was resting in bed w/o acute distress. Reports feeling better with abd pain now improving. No N/V this am. Denies fever, CP, SOB, signs of bleeding, jaundice, or LGI symptoms. No ETOH abuse, IV drug use, liver disease, new medications, or known Fhx of pancreatic/liver disease. Past History Past Medical History: other (endometriosis) Past Surgical History: Other (exp lap) Social history: smoking. denies: alcohol abuse Medications and Allergies Allergies Allergy/AdvReac Type Severity Reaction Status Date / Time No Known Allergies Allergy Verified 10/06/19 01:39 Active Meds: Active Medications Sodium Chloride (Nacl 0.9% 1000 Ml) 1,000 mls @ 125 mls/hr IV DIRECT BRIDGETTE Piperacillin Sod/Tazobactam Sod (Zosyn/Ns 4.5gm/100ml) 4.5 gm in 100 mls @ 200 mls/hr IV Q8HR BRIDGETTE; Protocol Morphine Sulfate (Morphine) 2 mg IV Q4H PRN PRN Reason: Pain, Moderate (4-6) Pantoprazole Sodium (Protonix) 40 mg IV QDAY BRIDGETTE medications reviewed/updated as required Review of Systems - Review of Systems All systems: negative Gastrointestinal: abdominal pain (epigastric), nausea, vomiting Exam - Constitutional Vital Signs: Temp Pulse Resp BP Pulse Ox 98.9 F 94 H 16 114/63 100 10/06/19 08:21 10/06/19 08:21 10/06/19 08:21 10/06/19 08:21 10/06/19 08:21 General appearance: no acute distress - EENT Eyes: PERRL, EOM intact ENT: hearing intact - Respiratory Respiratory effort: normal Respiratory: bilateral: CTA - Cardiovascular Rhythm: regular - Gastrointestinal General gastrointestinal: Present: soft, tender (epigastric), non-distended, normal bowel sounds - Integumentary Integumentary: Present: warm, dry - Neurologic Neurological: alert and oriented x3 - Labs CBC & Chem 7: 10/06/19 01:57 10/06/19 01:57 Lab Results: Laboratory Results - last 24 hr 10/06/19 10/06/19 10/06/19 01:57 01:57 04:58 WBC 14.7 H RBC 4.42 Hgb 11.1 Hct 33.8 MCV 76 L MCH 25 L MCHC 33 RDW 15.7 H Plt Count 335 Add Manual Diff Complete Total Counted 100 Seg Neutrophils % Clarifying Plant Operator Seg Neuts % (Manual) 88.0 H Band Neutrophils % 4.0 Lymphocytes % (Manual) 7.0 L Reactive Lymphs % (Man) 0 Monocytes % (Manual) 1.0 Eosinophils % (Manual) 0 Basophils % (Manual) 0 Metamyelocytes % 0 Myelocytes % 0 Promyelocytes % 0 Blast Cells % 0 Nucleated RBC % Not Reportable Seg Neutrophils # Man 12.9 H Band Neutrophils # 0.6 Lymphocytes # (Manual) 1.0 L Abs React Lymphs (Man) 0.0 Monocytes # (Manual) 0.1 Eosinophils # (Manual) 0.0 Basophils # (Manual) 0.0 Metamyelocytes # 0.0 Myelocytes # 0.0 Promyelocytes # 0.0 Blast Cells # 0.0 WBC Morphology Not Reportable Hypersegmented Neuts Not Reportable Hyposegmented Neuts Not Reportable Hypogranular Neuts Not Reportable Smudge Cells Not Reportable Toxic Granulation Not Reportable Toxic Vacuolation Not Reportable Dohle Bodies Not Reportable Pelger-Huet Anomaly Not Reportable Meg Rods Not Reportable Platelet Estimate Consistent w auto Clumped Platelets Not Reportable Plt Clumps, EDTA Not Reportable Large Platelets Not Reportable Giant Platelets Not Reportable Platelet Satelliting Not Reportable Plt Morphology Comment Not Reportable RBC Morphology Not Reportable Dimorphic RBCs Not Reportable Polychromasia Not Reportable Hypochromasia 1+ Poikilocytosis Not Reportable Anisocytosis Not Reportable Microcytosis Not Reportable Macrocytosis Not Reportable Spherocytes Not Reportable Pappenheimer Bodies Not Reportable Sickle Cells Not Reportable Target Cells Few Tear Drop Cells Not Reportable Ovalocytes Not Reportable Helmet Cells Not Reportable Chaves-Burlison Bodies Not Reportable [place] Rings Not Reportable [place] Cells Not Reportable Bite Cells Not Reportable Crenated Cell Not Reportable Elliptocytes Not Reportable Acanthocytes (Spur) Not Reportable Rouleaux Not Reportable Hemoglobin C Crystals Not Reportable Schistocytes Not Reportable Malaria parasites Not Reportable Benoit Bodies Not Reportable Hem Pathologist Commnt No PT 13.4 INR 1.01 APTT 25.4 Sodium 141 Potassium 4.3 Chloride 101.6 Carbon Dioxide 19 L Anion Gap 25 BUN 16 Creatinine 1.1 Estimated GFR 52 BUN/Creatinine Ratio 15 Glucose 145 H Lactic Acid Calcium 10.0 Magnesium Total Bilirubin 1.60 H AST 1619 H ALT 698 H Alkaline Phosphatase 335 H Total Creatine Kinase Total Protein 7.9 Albumin 4.6 Albumin/Globulin Ratio 1.4 Lipase Urine Color Urine Turbidity Urine pH Ur Specific [place] Urine Protein Urine Glucose (UA) Urine Ketones Urine Blood Urine Nitrite Urine Bilirubin Urine Urobilinogen Ur Leukocyte Esterase Urine WBC (Auto) Urine RBC (Auto) U Epithel Cells (Auto) Urine Mucus Acetaminophen Hepatitis A IgM Ab Hep Bs Antigen Hep B Core IgM Ab Hepatitis C Antibody 10/06/19 10/06/19 10/06/19 04:58 04:58 04:58 WBC RBC Hgb Hct MCV MCH MCHC RDW Plt Count Add Manual Diff Total Counted Seg Neutrophils % Seg Neuts % (Manual) Band Neutrophils % Lymphocytes % (Manual) Reactive Lymphs % (Man) Monocytes % (Manual) Eosinophils % (Manual) Basophils % (Manual) Metamyelocytes % Myelocytes % Promyelocytes % Blast Cells % Nucleated RBC % Seg Neutrophils # Man Band Neutrophils # Lymphocytes # (Manual) Abs React Lymphs (Man) Monocytes # (Manual) Eosinophils # (Manual) Basophils # (Manual) Metamyelocytes # Myelocytes # Promyelocytes # Blast Cells # WBC Morphology Hypersegmented Neuts Hyposegmented Neuts Hypogranular Neuts Smudge Cells Toxic Granulation Toxic Vacuolation Dohle Bodies Pelger-Huet Anomaly Meg Rods Platelet Estimate Clumped Platelets Plt Clumps, EDTA Large Platelets Giant Platelets Platelet Satelliting Plt Morphology Comment RBC Morphology Dimorphic RBCs Polychromasia Hypochromasia Poikilocytosis Anisocytosis Microcytosis Macrocytosis Spherocytes Pappenheimer Bodies Sickle Cells Target Cells Tear Drop Cells Ovalocytes Helmet Cells Chaves-Burlison Bodies [place] Rings Francis Cells Bite Cells Crenated Cell Elliptocytes Acanthocytes (Spur) Rouleaux Hemoglobin C Crystals Schistocytes Malaria parasites Benoit Bodies Hem Pathologist Commnt PT INR APTT Sodium Potassium Chloride Carbon Dioxide Anion Gap BUN Creatinine Estimated GFR BUN/Creatinine Ratio Glucose Lactic Acid 4.00 H* Calcium Magnesium 1.80 Total Bilirubin AST ALT Alkaline Phosphatase Total Creatine Kinase 61 Total Protein Albumin Albumin/Globulin Ratio Lipase > 299 H Urine Color Urine Turbidity Urine pH Ur Specific [place] Urine Protein Urine Glucose (UA) Urine Ketones Urine Blood Urine Nitrite Urine Bilirubin Urine Urobilinogen Ur Leukocyte Esterase Urine WBC (Auto) Urine RBC (Auto) U Epithel Cells (Auto) Urine Mucus Acetaminophen Hepatitis A IgM Ab Non-reactive Hep Bs Antigen Non-reactive Hep B Core IgM Ab Non-reactive Hepatitis C Antibody Non-reactive 10/06/19 10/06/19 10/06/19 04:58 05:52 08:31 WBC RBC Hgb Hct MCV MCH MCHC RDW Plt Count Add Manual Diff Total Counted Seg Neutrophils % Seg Neuts % (Manual) Band Neutrophils % Lymphocytes % (Manual) Reactive Lymphs % (Man) Monocytes % (Manual) Eosinophils % (Manual) Basophils % (Manual) Metamyelocytes % Myelocytes % Promyelocytes % Blast Cells % Nucleated RBC % Seg Neutrophils # Man Band Neutrophils # Lymphocytes # (Manual) Abs React Lymphs (Man) Monocytes # (Manual) Eosinophils # (Manual) Basophils # (Manual) Metamyelocytes # Myelocytes # Promyelocytes # Blast Cells # WBC Morphology Hypersegmented Neuts Hyposegmented Neuts Hypogranular Neuts Smudge Cells Toxic Granulation Toxic Vacuolation Dohle Bodies Pelger-Huet Anomaly Meg Rods Platelet Estimate Clumped Platelets Plt Clumps, EDTA Large Platelets Giant Platelets Platelet Satelliting Plt Morphology Comment RBC Morphology Dimorphic RBCs Polychromasia Hypochromasia Poikilocytosis Anisocytosis Microcytosis Macrocytosis Spherocytes Pappenheimer Bodies Sickle Cells Target Cells Tear Drop Cells Ovalocytes Helmet Cells Chaves-Burlison Bodies [place] Rings [place] Cells Bite Cells Crenated Cell Elliptocytes Acanthocytes (Spur) Rouleaux Hemoglobin C Crystals Schistocytes Malaria parasites Benoit Bodies Hem Pathologist Commnt PT INR APTT Sodium Potassium Chloride Carbon Dioxide Anion Gap BUN Creatinine Estimated GFR BUN/Creatinine Ratio Glucose Lactic Acid 1.00 Calcium Magnesium Total Bilirubin AST ALT Alkaline Phosphatase Total Creatine Kinase Total Protein Albumin Albumin/Globulin Ratio Lipase Urine Color [place] Urine Turbidity Cloudy Urine pH 5.0 Ur Specific [place] 1.033 H Urine Protein 30 mg/dl Urine Glucose (UA) Neg Urine Ketones Tr Urine Blood Neg Urine Nitrite Neg Urine Bilirubin Neg Urine Urobilinogen 2.0 Ur Leukocyte Esterase Sm Urine WBC (Auto) 2.0 Urine RBC (Auto) 4.0 U Epithel Cells (Auto) 35.0 H Urine Mucus 3+ Acetaminophen < 5.0 L Hepatitis A IgM Ab Hep Bs Antigen Hep B Core IgM Ab Hepatitis C Antibody Assessment and Plan 1.acute pancreatitis -temp 99 -WBC 14.7 -H/H, plt, INR WNL -acute hepatitis and acetaminophen level negative -lipase >299 -LFTs- T.bebo 1.60, AST 1619, ALT 698, alk phos 335 -abd CT-findings suggestive of acute cholecystitis -abd U/S showing cholelithiasis, sludge in lumen of gallbladder with gallbladder mildly thickened -etiology-most likely biliary/gallstone -will order MR/MRCP to r/o obstruction/choledocholithiasis-consider ERCP based on results -recommend surgery consult for possible cholecystectomy -NPO now til MRI completed then okay for clears today; NPO after MN -triglyceride level in am -continue PPI -continue antibiotics -continue to trend labs and supportive care with IVF, pain control, antiemetics, etc. -further recommendations to follow
[2019-10-06] MEDS: MORPHINE 2 MG/1 ML INJ IV PRN ×2 (13:28→19:51)
[2019-10-06] MEDS: PANTOPRAZOLE 40 MG INJ IV SCH (13:29)
[2019-10-06] MEDS: SODIUM CHLORIDE 0.9% 1000 ML 1,000 ML IV SCH ×2 (13:29→23:23)
--- NOTE | 2019-10-06 15:16 | Consultation ---
History of Present Illness Consult date: 10/06/19 Reason for consult: abdominal pain Requesting physician: LUZ ELENA SIERRA Chief complaint: severe abdominal pain - History of present illness History of present illness: 49yo F, fairly healthy, who presented last night to the emergency room with acute onset of severe abdominal pain associated with nausea and vomiting. Gen. surgery was consult for possible cholecystitis. Patient reports in the last few months she has had recurrent attacks of abdominal pain, primarily at night. They would resolve on their own. This is the first time she had nausea and vomiting. She felt very bloated. Denies diarrhea, fevers, chills. Denies radiation of pain or back pain. She is feeling much better now. Has very minimal pain in the upper abdomen now. Past History Past Medical History: No medical history Past Surgical History: No surgical history Social history: smoking (1 pk/wk). denies: alcohol abuse, prescription drug abuse Family history: no significant family history Medications and Allergies Allergies Allergy/AdvReac Type Severity Reaction Status Date / Time No Known Allergies Allergy Verified 10/06/19 01:39 Active Meds: Active Medications Sodium Chloride (Nacl 0.9% 1000 Ml) 1,000 mls @ 125 mls/hr IV DIRECT BRIDGETTE Last Admin: 10/06/19 13:29 Dose: 125 mls/hr Documented by: Piperacillin Sod/Tazobactam Sod (Zosyn/Ns 4.5gm/100ml) 4.5 gm in 100 mls @ 200 mls/hr IV Q8HR BRIDGETTE; Protocol Morphine Sulfate (Morphine) 2 mg IV Q4H PRN PRN Reason: Pain, Moderate (4-6) Last Admin: 10/06/19 13:28 Dose: 2 mg Documented by: Pantoprazole Sodium (Protonix) 40 mg IV QDAY BRIDGETTE Last Admin: 10/06/19 13:29 Dose: 40 mg Documented by: Review of Systems - Constitutional no fever, no chills, no chronic pain - Cardiovascular no chest pain, no shortness of breath - Respiratory no cough - Gastrointestinal abdominal pain, nausea, vomiting, excessive gas, dyspepsia/bloating, no diarrhea, no constipation, no hematemesis, no coffee ground emesis, no BRBPR, no melena, no hematochezia - Genitourinary Genitourinary: no pelvic pain, no flank pain, no dysuria - Muskuloskeletal no low back pain - Integumentary no pruritis, no sores, no jaundice Exam Vital Signs Pulse BP Pulse Ox 94 H 105/66 99 10/06/19 01:38 10/06/19 01:38 10/06/19 01:38 - General physical appearance Positive: no distress, no pain, other (pleasant. does not appear ill) - Eyes Positive: normal occular movement. Negative: icteric - Respiratory Positive: normal expansion, normal respiratory effort, clear to auscultation - Cardiovascular Rhythm: regular - Abdomen Abdomen: Present: soft, tender (mild in epigastric area. No RUQ tenderness), bowel sounds hypoactive. Absent: distended, masses, guarding, rigid, wound, surgical scars - Integumentary no rash, no growths, no abnormal pigmentation - Neurologic Neurologic: alert and oriented to time, place and person, motor strength and sensation are grossly intact - Psychiatric Psychiatric: appropriate mood/affect, intact judgment & insight, cooperative Results - Labs 10/06/19 01:57 10/06/19 01:57 Abnormal lab results 10/06/19 10/06/19 10/06/19 Range/Units 01:57 01:57 04:58 WBC 14.7 H (4.5-11.0) K/mm3 MCV 76 L (79-97) fl MCH 25 L (28-32) pg RDW 15.7 H (13.2-15.2) % Seg Neuts % (Manual) 88.0 H (40.0-70.0) % Lymphocytes % (Manual) 7.0 L (13.4-35.0) % Seg Neutrophils # Man 12.9 H (1.8-7.7) K/mm3 Lymphocytes # (Manual) 1.0 L (1.2-5.4) K/mm3 Carbon Dioxide 19 L (22-30) mmol/L Glucose 145 H (65-100) mg/dL Lactic Acid 4.00 H* (0.7-2.0) mmol/L Total Bilirubin 1.60 H (0.1-1.2) mg/dL AST 1619 H (5-40) units/L ALT 698 H (7-56) units/L Alkaline Phosphatase 335 H (35-129) units/L Lipase (13-60) units/L Ur Specific [employer] [place] (1.003-1.030) U Epithel Cells (Auto) (0-13.0) /HPF Acetaminophen (10.0-30.0) ug/mL 10/06/19 10/06/19 10/06/19 Range/Units 04:58 04:58 05:52 WBC (4.5-11.0) K/mm3 MCV (79-97) fl MCH (28-32) pg RDW (13.2-15.2) % Seg Neuts % (Manual) (40.0-70.0) % Lymphocytes % (Manual) (13.4-35.0) % Seg Neutrophils # Man (1.8-7.7) K/mm3 Lymphocytes # (Manual) (1.2-5.4) K/mm3 Carbon Dioxide (22-30) mmol/L Glucose (65-100) mg/dL Lactic Acid (0.7-2.0) mmol/L Total Bilirubin (0.1-1.2) mg/dL AST (5-40) units/L ALT (7-56) units/L Alkaline Phosphatase (35-129) units/L Lipase > 299 H (13-60) units/L Ur Specific [employer] [place] 1.033 H (1.003-1.030) U Epithel Cells (Auto) 35.0 H (0-13.0) /HPF Acetaminophen < 5.0 L (10.0-30.0) ug/mL Diabetes panel 10/06/19 Range/Units 01:57 Sodium 141 (137-145) mmol/L Potassium 4.3 (3.6-5.0) mmol/L Chloride 101.6 (98-107) mmol/L Carbon Dioxide 19 L (22-30) mmol/L BUN 16 (7-17) mg/dL Creatinine 1.1 (0.7-1.2) mg/dL Glucose 145 H (65-100) mg/dL Calcium 10.0 (8.4-10.2) mg/dL AST 1619 H (5-40) units/L ALT 698 H (7-56) units/L Alkaline Phosphatase 335 H (35-129) units/L Total Protein 7.9 (6.3-8.2) g/dL Albumin 4.6 (3.9-5) g/dL Calcium panel 10/06/19 Range/Units 01:57 Calcium 10.0 (8.4-10.2) mg/dL Albumin 4.6 (3.9-5) g/dL Pituitary panel 10/06/19 Range/Units 01:57 Sodium 141 (137-145) mmol/L Potassium 4.3 (3.6-5.0) mmol/L Chloride 101.6 (98-107) mmol/L Carbon Dioxide 19 L (22-30) mmol/L BUN 16 (7-17) mg/dL Creatinine 1.1 (0.7-1.2) mg/dL Glucose 145 H (65-100) mg/dL Calcium 10.0 (8.4-10.2) mg/dL Adrenal panel 10/06/19 Range/Units 01:57 Sodium 141 (137-145) mmol/L Potassium 4.3 (3.6-5.0) mmol/L Chloride 101.6 (98-107) mmol/L Carbon Dioxide 19 L (22-30) mmol/L BUN 16 (7-17) mg/dL Creatinine 1.1 (0.7-1.2) mg/dL Glucose 145 H (65-100) mg/dL Calcium 10.0 (8.4-10.2) mg/dL Total Bilirubin 1.60 H (0.1-1.2) mg/dL AST 1619 H (5-40) units/L ALT 698 H (7-56) units/L Alkaline Phosphatase 335 H (35-129) units/L Total Protein 7.9 (6.3-8.2) g/dL Albumin 4.6 (3.9-5) g/dL - Imaging CT scan - abdomen: report reviewed, image reviewed CT scan - pelvis: report reviewed, image reviewed US - abdomen: report reviewed, image reviewed Additional studies: MRCP images reviewed. Report pending Assessment and Plan - Patient Problems (1) Acute gallstone pancreatitis Current Visit: Yes Status: Acute Plan to address problem: Pt stable. Pain is better. Based on the history, I think she had an attack last night of gallstone pancreatitis. As her pain is better now, she probably has passed the stone. We'll await the results of the MRCP and see what the labs are tomorrow to decide on whether ERCP should be done first or whether we can move straight to cholecystectomy. For now, patient is markedly dehydrated. That would explain the elevated lactic acid, elevated specific gravity of the urine, and leukocytosis. I think leukocytosis may also be more of a stress reaction. I will order additional fluids for tonight. I have explained the very scenarios and the associated plans. Patient understands and was appreciative of the time. Follow along. Please call with questions. Time=45min
--- NOTE | 2019-10-06 15:34 | Magnetic Resonance Report ---
MR abdomen MRCP INDICATION: Pancreatitis. Abdominal pain. Evaluate for biliary obstruction/choledocholithiasis. TECHNIQUE: Multiplanar, multisequence MR images were obtained through the abdomen without contrast. COMPARISON: CT abdomen and pelvis with contrast performed earlier today. FINDINGS: Motion artifact limits this exam. Lower chest: No significant abnormality. Liver: No significant abnormality. Biliary: No biliary ductal dilatation is identified. No distinct choledocholithiasis is seen. The gal lbladder contains numerous stones with similar distention and wall thickening. Pancreas: No significant abnormality. Spleen: No significant abnormality. Adrenals: No significant abnormality. Kidneys: No significant abnormality. GI tract: No significant abnormality of the stomach or the included portions of the small bowel/colon . Peritoneum: No free fluid or fluid collection. Lymph nodes: No significant adenopathy. Vasculature: No significant abnormality. Bones: No significant abnormality. Additional findings: None. IMPRESSION: 1. Cholelithiasis with similar findings suggestive of acute cholecystitis as seen on the CT performed earlier today. 2. No biliary obstruction or distinct choledocholithiasis. Signer Name: Maurice Cardozo MD Signed: 10/06/2019 3:29 PM Workstation Name: [id number]
[2019-10-06] MEDS: PIPERACIL/TAZOBACTA 4.5/NS 100 4.5 GM/100 ML VIAL IV SCH ×2 (16:10→23:24)
[2019-10-06] MEDS: LACTATED RINGERS 1,000 ML IV SCH ×2 (16:11→20:12)
[2019-10-07] MEDS: MORPHINE 2 MG/1 ML INJ IV PRN ×2 (05:04→08:37)
[2019-10-07 06:03] LABS: Basophils % (Auto) 0.2 % (0.0-1.8); Eosinophils % (Auto) 0.1 % (0.0-4.3); Hematocrit 28.5 % (30.3-42.9); Hemoglobin 9.2 gm/dl (10.1-14.3); Lymphocytes # (Auto) 0.9 K/mm3 (1.2-5.4); Lymphocytes % (Auto) 6.3 % (13.4-35.0); Mean Corpuscular HGB Conc 32 % (30-34); Mean Corpuscular Volume 76 fl (79-97); Monocytes # (Auto) 0.7 K/mm3 (0.0-0.8); Platelet Count 273 K/mm3 (140-440); Red Blood Count 3.74 M/mm3 (3.65-5.03); Red Cell Distribution Width 15.8 % (13.2-15.2)
[2019-10-07] MEDS: PIPERACIL/TAZOBACTA 4.5/NS 100 4.5 GM/100 ML VIAL IV SCH ×3 (06:19→23:27)
[2019-10-07 06:20] LABS: Albumin 3.5 g/dL (3.9-5); BUN/Creatinine Ratio 12; Blood Urea Nitrogen 7 mg/dL (7-17); Calcium 8.7 mg/dL (8.4-10.2); Hemolysis Index 0
[2019-10-07 06:23] LABS: Alanine Aminotransferase 752 units/L (7-56)
[2019-10-07] MEDS ORDERED: POTASSIUM CHLORIDE IV SCH ×3 (07:00→12:00)
[2019-10-07] MEDS ORDERED: SODIUM CHLORIDE 0.9% IV SCH ×3 (07:00→12:00)
[2019-10-07] MEDS ORDERED: SODIUM CHLORIDE 0.9% 1000 ML 1,000 ML with POTASSIUM CHLORIDE 20 MEQ IV SCH (08:46)
[2019-10-07] MEDS ORDERED: HYDROmorphone 1 MG/1 ML INJ IV ONE (08:55)
[2019-10-07] MEDS ORDERED: MORPHINE 2 MG/1 ML INJ IV PRN (09:00)
--- NOTE | 2019-10-07 09:01 | Progress Note ---
Assessment and Plan - Patient Problems (1) Acute gallstone pancreatitis Current Visit: Yes Status: Acute Plan to address problem: Pt stable. Had exacerbation of pain secondary to oral intake. Lipase only slightly improved. Will keep NPO today and continue to resuscitate. Would like to see more improvement in lipase prior to OR. MRCP was neg. Our plan will be cholecystectomy with IOC tomorrow if lipase continues to improve. Labs in AM. Please call with questions. Time=15min Subjective Date of service: 10/07/19 Patient Reports: Positive: still having pain (increased immediately after having apple juice last night. ), nausea. Negative: vomiting Objective Vital Signs - 12hr 10/06/19 10/07/19 10/07/19 23:34 02:35 05:18 Temperature 100.5 F H 99 F 99.6 F Pulse Rate 110 H 103 H Respiratory 20 18 Rate Blood Pressure 132/56 114/46 O2 Sat by Pulse 98 98 Oximetry - General physical appearance no distress, moderate pain - Eyes normal occular movement - Respiratory normal expansion, normal respiratory effort - Abdomen soft, tender (in epigastric/RUQ area), not rigid - Psychiatric oriented to time, oriented to person, oriented to place, speech is normal, memory intact - Labs 10/07/19 05:27 10/07/19 05:27 Diabetes panel 10/07/19 Range/Units 05:27 Sodium 139 (137-145) mmol/L Potassium 2.9 L* D (3.6-5.0) mmol/L Chloride 102.6 (98-107) mmol/L Carbon Dioxide 21 L (22-30) mmol/L BUN 7 (7-17) mg/dL Creatinine 0.6 L (0.7-1.2) mg/dL Glucose 108 H (65-100) mg/dL Calcium 8.7 (8.4-10.2) mg/dL AST 655 H (5-40) units/L ALT 752 H (7-56) units/L Alkaline Phosphatase 338 H (35-129) units/L Total Protein 6.6 (6.3-8.2) g/dL Albumin 3.5 L (3.9-5) g/dL Triglycerides 46 (2-149) mg/dL Calcium panel 10/07/19 Range/Units 05:27 Calcium 8.7 (8.4-10.2) mg/dL Albumin 3.5 L (3.9-5) g/dL Pituitary panel 10/07/19 Range/Units 05:27 Sodium 139 (137-145) mmol/L Potassium 2.9 L* D (3.6-5.0) mmol/L Chloride 102.6 (98-107) mmol/L Carbon Dioxide 21 L (22-30) mmol/L BUN 7 (7-17) mg/dL Creatinine 0.6 L (0.7-1.2) mg/dL Glucose 108 H (65-100) mg/dL Calcium 8.7 (8.4-10.2) mg/dL Adrenal panel 10/07/19 Range/Units 05:27 Sodium 139 (137-145) mmol/L Potassium 2.9 L* D (3.6-5.0) mmol/L Chloride 102.6 (98-107) mmol/L Carbon Dioxide 21 L (22-30) mmol/L BUN 7 (7-17) mg/dL Creatinine 0.6 L (0.7-1.2) mg/dL Glucose 108 H (65-100) mg/dL Calcium 8.7 (8.4-10.2) mg/dL Total Bilirubin 2.30 H (0.1-1.2) mg/dL AST 655 H (5-40) units/L ALT 752 H (7-56) units/L Alkaline Phosphatase 338 H (35-129) units/L Total Protein 6.6 (6.3-8.2) g/dL Albumin 3.5 L (3.9-5) g/dL
[2019-10-07] MEDS: PANTOPRAZOLE 40 MG INJ IV SCH (09:51)
[2019-10-07] MEDS ORDERED: LACTATED RINGERS 1,000 ML IV ONE (09:53)
[2019-10-07] MEDS: LACTATED RINGERS 1,000 ML IV SCH (10:00)
--- NOTE | 2019-10-07 10:42 | Gastroenterology Progress Note ---
Assessment and Plan 1.acute pancreatitis -temp 99.6 -WBC 14.1 -H/H 9.2/28.5-no signs of bleeding -plt and INR WNL -acute hepatitis and acetaminophen level negative -lipase 212-slight trend down -triglyceride level WNL -LFTs- T.bebo 2.30, AST 655, ALT 752, alk phos 338 -abd CT-findings suggestive of acute cholecystitis -abd U/S showing cholelithiasis, sludge in lumen of gallbladder with gallbladder mildly thickened -etiology-most likely gallstone pancreatitis -MR/MRCP yesterday negative for obstruction/choledocholithiasis -surgery following with cholecystectomy with IOC planned for tomorrow -no plan for ERCP at this time, unless IOC positive -Keep NPO for now -continue PPI and antibiotics -continue to trend labs and supportive care with IVF, pain control, antiemetics, etc. Subjective Date of service: 10/07/19 Principal diagnosis: pancreatitis Interval history: No acute distress. Reports continued abd pain. No vomiting or signs of bleeding. Objective - Constitutional Vitals: Temp Pulse Resp BP Pulse Ox 99.6 F 103 H 18 114/46 98 10/07/19 05:18 10/07/19 05:18 10/07/19 05:18 10/07/19 05:18 10/07/19 05:18 General appearance: no acute distress - EENT Eyes: PERRL, EOM intact ENT: hearing intact - Respiratory Respiratory effort: normal - Cardiovascular Rhythm: other (tachycardia) - Gastrointestinal General gastrointestinal: Present: soft, tender, non-distended, normal bowel sounds - Neurologic Neurological: alert and oriented x3 - Labs CBC & Chem 7: 10/07/19 05:27 10/07/19 05:27 Labs: Laboratory Results - last 24 hr 10/07/19 10/07/19 05:27 05:27 WBC 14.1 H RBC 3.74 Hgb 9.2 L Hct 28.5 L MCV 76 L MCH 25 L MCHC 32 RDW 15.8 H Plt Count 273 Lymph % (Auto) 6.3 L [place] % (Auto) 5.0 Eos % (Auto) 0.1 Baso % (Auto) 0.2 Lymph # 0.9 L [place] # 0.7 Eos # 0.0 Baso # 0.0 Seg Neutrophils % 88.4 H Seg Neutrophils # 12.5 H Sodium 139 Potassium 2.9 L* D Chloride 102.6 Carbon Dioxide 21 L Anion Gap 18 BUN 7 Creatinine 0.6 L Estimated GFR > 60 BUN/Creatinine Ratio 12 Glucose 108 H Calcium 8.7 Magnesium 1.80 Total Bilirubin 2.30 H AST 655 H ALT 752 H Alkaline Phosphatase 338 H Total Protein 6.6 Albumin 3.5 L Albumin/Globulin Ratio 1.1 Triglycerides 46 Lipase 212 H
--- NOTE | 2019-10-07 13:07 | Progress Note ---
Assessment and Plan Assessment and plan: 49-year-old -[place] female patient with no significant past medical history was admitted with abdominal pain, work-up is consistent with acute gallstone pancreatitis transaminitis acute cholecystitis, evaluated by GI and surgery, MRCP findings noted Scheduled for cholecystectomy today, however as patient is having abdominal pain and nausea, surgery was rescheduled for tomorrow CT abd-findings suggestive of acute cholecystitis U/S Abd: cholelithiasis, sludge in lumen of gallbladder with gallbladder mildly thickened MRCP ; negative for obstruction/choledocholithiasis Assessment: --Acute gallstone pancreatitis --Acute transaminitis --Acute cholecystitis --Cholelithiasis --Leukocytosis --Lactic acidosis --Sepsis secondary to acute cholecystitis --Ongoing tobacco use Plan; N.p.o. status IV fluids LFTs and lipase levels trending down Pain medications, Empiric antibiotics Smoking cessation counseling DVT prophylaxis Closely monitor the patient and adjust the management as needed Plan of care reviewed with the patient and her nurse History Interval history: Patient seen and examined medical records reviewed Patient initially was scheduled for cholecystectomy today however patient had excruciating abdominal pain upon taking clear liquids Discussed with surgeon Dr. Wells, rescheduled for tomorrow Patient feels slightly better Still has abdominal pain Vital signs reviewed Hospitalist Physical - Constitutional Vitals: Temp Pulse Resp BP Pulse Ox 98.6 F 102 H 20 118/54 95 10/07/19 11:27 10/07/19 11:27 10/07/19 11:27 10/07/19 11:27 10/07/19 11:27 General appearance: Present: mild distress, well-nourished - EENT Eyes: Present: PERRL, EOM intact - Neck Neck: Present: supple, normal ROM - Respiratory Respiratory effort: normal Respiratory: bilateral: diminished, negative: rales, rhonchi, wheezing - Cardiovascular Rhythm: regular Heart Sounds: Present: S1 & S2 - Extremities Extremities: no ischemia, No edema - Abdominal General gastrointestinal: soft, non-tender, tender (No guarding no rigidity), normal bowel sounds - Integumentary Integumentary: Present: clear, warm - Psychiatric Psychiatric: appropriate mood/affect, cooperative - Neurologic Neurologic: CNII-XII intact, moves all extremities Results - Labs CBC & Chem 7: 10/07/19 05:27 10/07/19 05:27 Labs: Laboratory Last Values WBC 14.1 K/mm3 (4.5-11.0) H 10/07/19 05:27 RBC 3.74 M/mm3 (3.65-5.03) 10/07/19 05:27 Hgb 9.2 gm/dl (10.1-14.3) L 10/07/19 05:27 Hct 28.5 % (30.3-42.9) L 10/07/19 05:27 MCV 76 fl (79-97) L 10/07/19 05:27 MCH 25 pg (28-32) L 10/07/19 05:27 MCHC 32 % (30-34) 10/07/19 05:27 RDW 15.8 % (13.2-15.2) H 10/07/19 05:27 Plt Count 273 K/mm3 (140-440) 10/07/19 05:27 Lymph % (Auto) 6.3 % (13.4-35.0) L 10/07/19 05:27 Stephenson % (Auto) 5.0 % (0.0-7.3) 10/07/19 05:27 Eos % (Auto) 0.1 % (0.0-4.3) 10/07/19 05:27 Baso % (Auto) 0.2 % (0.0-1.8) 10/07/19 05:27 Lymph # 0.9 K/mm3 (1.2-5.4) L 10/07/19 05:27 Stephenson # 0.7 K/mm3 (0.0-0.8) 10/07/19 05:27 Eos # 0.0 K/mm3 (0.0-0.4) 10/07/19 05:27 Baso # 0.0 K/mm3 (0.0-0.1) 10/07/19 05:27 Add Manual Diff Complete 10/06/19 01:57 Total Counted 100 10/06/19 01:57 Seg Neutrophils % 88.4 % (40.0-70.0) H 10/07/19 05:27 Seg Neuts % (Manual) 88.0 % (40.0-70.0) H 10/06/19 01:57 Band Neutrophils % 4.0 % 10/06/19 01:57 Lymphocytes % (Manual) 7.0 % (13.4-35.0) L 10/06/19 01:57 Reactive Lymphs % (Man) 0 % 10/06/19 01:57 Monocytes % (Manual) 1.0 % (0.0-7.3) 10/06/19 01:57 Eosinophils % (Manual) 0 % (0.0-4.3) 10/06/19 01:57 Basophils % (Manual) 0 % (0.0-1.8) 10/06/19 01:57 Metamyelocytes % 0 % 10/06/19 01:57 Myelocytes % 0 % 10/06/19 01:57 Promyelocytes % 0 % 10/06/19 01:57 Blast Cells % 0 % 10/06/19 01:57 Nucleated RBC % Not Reportable 10/06/19 01:57 Seg Neutrophils # 12.5 K/mm3 (1.8-7.7) H 10/07/19 05:27 Seg Neutrophils # Man 12.9 K/mm3 (1.8-7.7) H 10/06/19 01:57 Band Neutrophils # 0.6 K/mm3 10/06/19 01:57 Lymphocytes # (Manual) 1.0 K/mm3 (1.2-5.4) L 10/06/19 01:57 Abs React Lymphs (Man) 0.0 K/mm3 10/06/19 01:57 Monocytes # (Manual) 0.1 K/mm3 (0.0-0.8) 10/06/19 01:57 Eosinophils # (Manual) 0.0 K/mm3 (0.0-0.4) 10/06/19 01:57 Basophils # (Manual) 0.0 K/mm3 (0.0-0.1) 10/06/19 01:57 Metamyelocytes # 0.0 K/mm3 10/06/19 01:57 Myelocytes # 0.0 K/mm3 10/06/19 01:57 Promyelocytes # 0.0 K/mm3 10/06/19 01:57 Blast Cells # 0.0 K/mm3 10/06/19 01:57 WBC Morphology Not Reportable 10/06/19 01:57 Hypersegmented Neuts Not Reportable 10/06/19 01:57 Hyposegmented Neuts Not Reportable 10/06/19 01:57 Hypogranular Neuts Not Reportable 10/06/19 01:57 Smudge Cells Not Reportable 10/06/19 01:57 Toxic Granulation Not Reportable 10/06/19 01:57 Toxic Vacuolation Not Reportable 10/06/19 01:57 Dohle Bodies Not Reportable 10/06/19 01:57 Pelger-Huet Anomaly Not Reportable 10/06/19 01:57 Meg Rods Not Reportable 10/06/19 01:57 Platelet Estimate Consistent w auto 10/06/19 01:57 Clumped Platelets Not Reportable 10/06/19 01:57 Plt Clumps, EDTA Not Reportable 10/06/19 01:57 Large Platelets Not Reportable 10/06/19 01:57 Giant Platelets Not Reportable 10/06/19 01:57 Platelet Satelliting Not Reportable 10/06/19 01:57 Plt Morphology Comment Not Reportable 10/06/19 01:57 RBC Morphology Not Reportable 10/06/19 01:57 Dimorphic RBCs Not Reportable 10/06/19 01:57 Polychromasia Not Reportable 10/06/19 01:57 Hypochromasia 1+ 10/06/19 01:57 Poikilocytosis Not Reportable 10/06/19 01:57 Anisocytosis Not Reportable 10/06/19 01:57 Microcytosis Not Reportable 10/06/19 01:57 Macrocytosis Not Reportable 10/06/19 01:57 Spherocytes Not Reportable 10/06/19 01:57 Pappenheimer Bodies Not Reportable 10/06/19 01:57 Sickle Cells Not Reportable 10/06/19 01:57 Target Cells Few 10/06/19 01:57 Tear Drop Cells Not Reportable 10/06/19 01:57 Ovalocytes Not Reportable 10/06/19 01:57 Helmet Cells Not Reportable 10/06/19 01:57 Chaves-Nambe Bodies Not Reportable 10/06/19 01:57 Tyner Rings Not Reportable 10/06/19 01:57 Francis Cells Not Reportable 10/06/19 01:57 Bite Cells Not Reportable 10/06/19 01:57 Crenated Cell Not Reportable 10/06/19 01:57 Elliptocytes Not Reportable 10/06/19 01:57 Acanthocytes (Spur) Not Reportable 10/06/19 01:57 Rouleaux Not Reportable 10/06/19 01:57 Hemoglobin C Crystals Not Reportable 10/06/19 01:57 Schistocytes Not Reportable 10/06/19 01:57 Malaria parasites Not Reportable 10/06/19 01:57 Benoit Bodies Not Reportable 10/06/19 01:57 Hem Pathologist Commnt No 10/06/19 01:57 PT 13.4 Sec. (12.2-14.9) 10/06/19 04:58 INR 1.01 (0.87-1.13) 10/06/19 04:58 APTT 25.4 Sec. (24.2-36.6) 10/06/19 04:58 Sodium 139 mmol/L (137-145) 10/07/19 05:27 Potassium 2.9 mmol/L (3.6-5.0) L* D 10/07/19 05:27 Chloride 102.6 mmol/L (98-107) 10/07/19 05:27 Carbon Dioxide 21 mmol/L (22-30) L 10/07/19 05:27 Anion Gap 18 mmol/L 10/07/19 05:27 BUN 7 mg/dL (7-17) 10/07/19 05:27 Creatinine 0.6 mg/dL (0.7-1.2) L 10/07/19 05:27 Estimated GFR > 60 ml/min 10/07/19 05:27 BUN/Creatinine Ratio 12 % 10/07/19 05:27 Glucose 108 mg/dL (65-100) H 10/07/19 05:27 Lactic Acid 1.00 mmol/L (0.7-2.0) 10/06/19 08:31 Calcium 8.7 mg/dL (8.4-10.2) 10/07/19 05:27 Magnesium 1.80 mg/dL (1.7-2.3) 10/07/19 05:27 Total Bilirubin 2.30 mg/dL (0.1-1.2) H 10/07/19 05:27 AST 655 units/L (5-40) H 10/07/19 05:27 ALT 752 units/L (7-56) H 10/07/19 05:27 Alkaline Phosphatase 338 units/L (35-129) H 10/07/19 05:27 Total Creatine Kinase 61 units/L (30-135) 10/06/19 04:58 Total Protein 6.6 g/dL (6.3-8.2) 10/07/19 05:27 Albumin 3.5 g/dL (3.9-5) L 10/07/19 05:27 Albumin/Globulin Ratio 1.1 % 10/07/19 05:27 Triglycerides 46 mg/dL (2-149) 10/07/19 05:27 Lipase 212 units/L (13-60) H 10/07/19 05:27 Urine Color Emilia (Yellow) 10/06/19 05:52 Urine Turbidity Cloudy (Clear) 10/06/19 05:52 Urine pH 5.0 (5.0-7.0) 10/06/19 05:52 Ur Specific [place] 1.033 (1.003-1.030) H 10/06/19 05:52 Urine Protein 30 mg/dl mg/dL (Negative) 10/06/19 05:52 Urine Glucose (UA) Neg mg/dL (Negative) 10/06/19 05:52 Urine Ketones Tr mg/dL (Negative) 10/06/19 05:52 Urine Blood Neg (Negative) 10/06/19 05:52 Urine Nitrite Neg (Negative) 10/06/19 05:52 Urine Bilirubin Neg (Negative) 10/06/19 05:52 Urine Urobilinogen 2.0 mg/dL (<2.0) 10/06/19 05:52 Ur Leukocyte Esterase Sm (Negative) 10/06/19 05:52 Urine WBC (Auto) 2.0 /HPF (0.0-6.0) 10/06/19 05:52 Urine RBC (Auto) 4.0 /HPF (0.0-6.0) 10/06/19 05:52 U Epithel Cells (Auto) 35.0 /HPF (0-13.0) H 10/06/19 05:52 Urine Mucus 3+ /HPF 10/06/19 05:52 Acetaminophen < 5.0 ug/mL (10.0-30.0) L 10/06/19 04:58 Hepatitis A IgM Ab Non-reactive (NonReactive) 10/06/19 04:58 Hep Bs Antigen Non-reactive (Negative) 10/06/19 04:58 Hep B Core IgM Ab Non-reactive (NonReactive) 10/06/19 04:58 Hepatitis C Antibody Non-reactive (NonReactive) 10/06/19 04:58 Active Medications - Current Medications Current Medications: Generic Name Dose Route Start Last Admin Trade Name Freq PRN Reason Stop Dose Admin Piperacillin Sod/Tazobactam Sod 4.5 gm in 100 mls @ 200 mls/hr 10/06/19 14:00 10/07/19 06:19 Zosyn/Ns 4.5gm/100ml IV 200 mls/hr Q8HR BRIDGETTE Administration Protocol Lactated Ringer's 1,000 mls @ 999 mls/hr 10/06/19 16:00 10/07/19 10:00 Lactated Ringers IV 10/07/19 17:01 999 mls/hr DIRECT BRIDGETTE Administration Potassium Chloride 30 meq/ 515 mls @ 125 mls/hr 10/07/19 08:00 Sodium Chloride IV 10/08/19 12:08 DIRECT BRIDGETTE Potassium Chloride 20 meq/ 1,010 mls @ 125 mls/hr 10/07/19 08:46 Sodium Chloride IV DIRECT BRIDGETTE Morphine Sulfate 3 mg 10/07/19 09:00 10/07/19 12:45 Morphine IV 3 mg Q3H PRN Administration Pain, Moderate (4-6) Pantoprazole Sodium 40 mg 10/06/19 10:00 10/07/19 09:51 Protonix IV 40 mg QDAY BRIDGETTE Administration
[2019-10-07] MEDS: HYDROmorphone 1 MG/1 ML INJ IV PRN ×2 (14:17→19:50)
[2019-10-07] MEDS ORDERED: LIP THERAPY VASELINE TP PRN (15:00)
[2019-10-07] MEDS: KETOROLAC 30 MG/1 ML INJ IV PRN ×2 (17:15→23:26)
[2019-10-07 20:09] LABS: BUN/Creatinine Ratio 14; Blood Urea Nitrogen 7 mg/dL (7-17); Calcium 8.5 mg/dL (8.4-10.2); Hemolysis Index 8
[2019-10-08] MEDS: PIPERACIL/TAZOBACTA 4.5/NS 100 4.5 GM/100 ML VIAL IV SCH ×3 (05:38→21:22)
[2019-10-08] MEDS: HYDROmorphone 1 MG/1 ML INJ IV PRN ×3 (05:38→10:17)
[2019-10-08 07:10] LABS: Basophils % (Auto) 0.3 % (0.0-1.8); Eosinophils % (Auto) 0.2 % (0.0-4.3); Hematocrit 27.7 % (30.3-42.9); Hemoglobin 8.8 gm/dl (10.1-14.3); Lymphocytes % (Auto) 6.7 % (13.4-35.0); Mean Corpuscular HGB Conc 32 % (30-34); Mean Corpuscular Volume 77 fl (79-97); Monocytes # (Auto) 0.6 K/mm3 (0.0-0.8); Platelet Count 257 K/mm3 (140-440); Red Blood Count 3.61 M/mm3 (3.65-5.03); Red Cell Distribution Width 15.5 % (13.2-15.2)
[2019-10-08 07:55] LABS: Albumin 3.1 g/dL (3.9-5); BUN/Creatinine Ratio 14; Blood Urea Nitrogen 7 mg/dL (7-17); Calcium 8.4 mg/dL (8.4-10.2); Hemolysis Index 8
--- NOTE | 2019-10-08 08:18 | Progress Note ---
Assessment and Plan - Patient Problems (1) Acute gallstone pancreatitis Current Visit: Yes Status: Acute Plan to address problem: Pt stable. Pain has decreased. Labs are better. Scheduled for surgery today. Procedure, risks including bile duct injury, benefits discussed. All questions answered. Consent obtained. Our plan will be cholecystectomy with IOC today. Please call with questions. Time=15min Subjective Date of service: 10/08/19 Patient Reports: Positive: no new complaints, pain is less, afebrile Objective Vital Signs - 12hr 10/07/19 10/08/19 10/08/19 23:26 00:00 05:38 Temperature 98.4 F Pulse Rate 95 H Respiratory 18 20 20 Rate Blood Pressure 128/68 O2 Sat by Pulse 95 Oximetry 10/08/19 06:24 Temperature 98.6 F Pulse Rate 96 H Respiratory 20 Rate Blood Pressure 137/81 O2 Sat by Pulse 97 Oximetry - General physical appearance no distress, other (mild pain) - Eyes normal occular movement - Respiratory normal expansion, normal respiratory effort - Abdomen soft, tender - Psychiatric oriented to time, oriented to person, oriented to place, speech is normal, memory intact - Labs 10/08/19 06:47 10/08/19 06:47 Diabetes panel 10/07/19 10/08/19 Range/Units 19:40 06:47 Sodium 142 141 (137-145) mmol/L Potassium 3.5 L D 3.5 L (3.6-5.0) mmol/L Chloride 105.1 102.2 (98-107) mmol/L Carbon Dioxide 21 L 22 (22-30) mmol/L BUN 7 7 (7-17) mg/dL Creatinine 0.5 L 0.5 L (0.7-1.2) mg/dL Glucose 83 76 (65-100) mg/dL Calcium 8.5 8.4 (8.4-10.2) mg/dL AST 224 H (5-40) units/L Alkaline Phosphatase 343 H (35-129) units/L Total Protein 6.7 (6.3-8.2) g/dL Albumin 3.1 L (3.9-5) g/dL Calcium panel 10/07/19 10/08/19 Range/Units 19:40 06:47 Calcium 8.5 8.4 (8.4-10.2) mg/dL Albumin 3.1 L (3.9-5) g/dL Pituitary panel 10/07/19 10/08/19 Range/Units 19:40 06:47 Sodium 142 141 (137-145) mmol/L Potassium 3.5 L D 3.5 L (3.6-5.0) mmol/L Chloride 105.1 102.2 (98-107) mmol/L Carbon Dioxide 21 L 22 (22-30) mmol/L BUN 7 7 (7-17) mg/dL Creatinine 0.5 L 0.5 L (0.7-1.2) mg/dL Glucose 83 76 (65-100) mg/dL Calcium 8.5 8.4 (8.4-10.2) mg/dL Adrenal panel 10/07/19 10/08/19 Range/Units 19:40 06:47 Sodium 142 141 (137-145) mmol/L Potassium 3.5 L D 3.5 L (3.6-5.0) mmol/L Chloride 105.1 102.2 (98-107) mmol/L Carbon Dioxide 21 L 22 (22-30) mmol/L BUN 7 7 (7-17) mg/dL Creatinine 0.5 L 0.5 L (0.7-1.2) mg/dL Glucose 83 76 (65-100) mg/dL Calcium 8.5 8.4 (8.4-10.2) mg/dL Total Bilirubin 1.60 H (0.1-1.2) mg/dL AST 224 H (5-40) units/L Alkaline Phosphatase 343 H (35-129) units/L Total Protein 6.7 (6.3-8.2) g/dL Albumin 3.1 L (3.9-5) g/dL
[2019-10-08] MEDS: KETOROLAC 30 MG/1 ML INJ IV PRN ×2 (08:21→21:21)
--- NOTE | 2019-10-08 08:22 | Anesthesia Consultation ---
Anesthesia Consult and Med Hx Date of service: 10/08/19 - Airway Anesthetic Teeth Evaluation: Chipped (21 missing, 20 chipped) ROM Head & Neck: Adequate Mental/Hyoid Distance: Adequate Mallampati Class: Class II Intubation Access Assessment: Good - Pulmonary Exam CTA: Yes - Cardiac Exam Cardiac Exam: No Murmur - Pre-Operative Health Status ASA Pre-Surgery Classification: ASA2 Proposed Anesthetic Plan: General - Pulmonary Hx Smoking: Yes (2-3 cigarettes per day) Hx Asthma: No Hx Respiratory Symptoms: No SOB: No COPD: No Home Oxygen Therapy: No Hx Pneumonia: No Hx Sleep Apnea: No - Cardiovascular System Hx Hypertension: No Hx Coronary Artery Disease: No Hx Heart Attack/AMI: No Hx Angina: No Hx Percutaneous Transluminal Coronary Angioplasty (PTCA): No Hx Cardia Arrhythmia: No Hx Pacemaker: No Hx Internal Defibrillator: No Hx Valvular Heart Disease: No Hx Heart Murmur: No Hx Peripheral Vascular Disease: No - Central Nervous System Hx Neuromuscular Disorder: No Hx Seizures: No CVA: No Hx Back Pain: No Hx Psychiatric Problems: No - Gastrointestinal Hx Ulcer: No Hx Gastroesophageal Reflux Disease: Yes (related to gallbladder, taking peptobismal) - Endocrine Hx Renal Disease: No Hx End Stage Renal Disease: No Hx Cirrhosis: No Hx Liver Disease: No Hx Insulin Dependent Diabetes: No Hx Non-Insulin Dependent Diabetes: No Hx Thyroid Disease: No Hx Hypothyroidism: No Hx Hyperthyroidism: No - Hematic Hx Anemia: No Hx Sickle Cell Disease: No - Other Systems Hx Alcohol Use: No Hx Substance Use: No Hx Cancer: No Hx Obesity: No
[2019-10-08 08:31] LABS: Alanine Aminotransferase 453 units/L (7-56)
--- NOTE | 2019-10-08 08:40 | Anesthesia Day of Surgery ---
Anesthesia Day of Surgery - Day of Surgery Patient Examined: Yes Patient H&P Reviewed: Yes Patient is NPO: Yes Beta Blockers: No Elvin's Test: N/A
[2019-10-08] MEDS: PANTOPRAZOLE 40 MG INJ IV SCH (10:15)
--- NOTE | 2019-10-08 10:56 | Gastroenterology Progress Note ---
Assessment and Plan 1.acute pancreatitis -afebrile -WBC 15.6-trending up -H/H 8.8/27.7-no signs of bleeding -plt and INR WNL -acute hepatitis and acetaminophen level negative -lipase and LFTs trending down -triglyceride level WNL -abd CT-findings suggestive of acute cholecystitis -abd U/S showing cholelithiasis, sludge in lumen of gallbladder with gallbladder mildly thickened -MR/MRCP negative for obstruction/choledocholithiasis -etiology-most likely gallstone pancreatitis -surgery following with cholecystectomy with IOC planned for today -no plan for ERCP at this time, unless IOC positive -continue PPI and antibiotics -continue to trend labs and supportive care with IVF, pain control, antiemetics, etc. Subjective Date of service: 10/08/19 Principal diagnosis: pancreatitis Interval history: No acute distress or new GI complaints. Objective - Constitutional Vitals: Temp Pulse Resp BP Pulse Ox 98.6 F 96 H 20 137/81 97 10/08/19 06:24 10/08/19 06:24 10/08/19 06:24 10/08/19 06:24 10/08/19 06:24 General appearance: no acute distress - EENT Eyes: PERRL, EOM intact ENT: hearing intact - Respiratory Respiratory effort: normal - Cardiovascular Rhythm: regular - Gastrointestinal General gastrointestinal: Present: soft, tender, non-distended, normal bowel s ounds - Neurologic Neurological: alert and oriented x3 - Labs CBC & Chem 7: 10/08/19 06:47 10/08/19 06:47 Labs: Laboratory Results - last 24 hr 10/07/19 10/08/19 10/08/19 19:40 06:47 06:47 WBC 15.6 H RBC 3.61 L Hgb 8.8 L Hct 27.7 L MCV 77 L MCH 24 L MCHC 32 RDW 15.5 H Plt Count 257 Lymph % (Auto) 6.7 L [place] % (Auto) 4.0 Eos % (Auto) 0.2 Baso % (Auto) 0.3 Lymph # 1.0 L [place] # 0.6 Eos # 0.0 Baso # 0.0 Seg Neutrophils % 88.8 H Seg Neutrophils # 13.9 H Sodium 142 141 Potassium 3.5 L D 3.5 L Chloride 105.1 102.2 Carbon Dioxide 21 L 22 Anion Gap 19 20 BUN 7 7 Creatinine 0.5 L 0.5 L Estimated GFR > 60 > 60 BUN/Creatinine Ratio 14 14 Glucose 83 76 Calcium 8.5 8.4 Total Bilirubin 1.60 H AST 224 H ALT 453 H Alkaline Phosphatase 343 H Total Protein 6.7 Albumin 3.1 L Albumin/Globulin Ratio 0.9 Lipase 128 H
--- NOTE | 2019-10-08 11:28 | Progress Note ---
Assessment and Plan Assessment and plan: 49-year-old -[place] female patient with no significant past medical history was admitted with abdominal pain, work-up is consistent with acute gallstone pancreatitis transaminitis acute cholecystitis, evaluated by GI and surgery, MRCP findings noted Scheduled for cholecystectomy today, CT abd-findings suggestive of acute cholecystitis U/S Abd: cholelithiasis, sludge in lumen of gallbladder with gallbladder mildly thickened MRCP ; negative for obstruction/choledocholithiasis --Acute cholecystitis; Empiric antibiotics, pain medications, nothing by mouth status IV fluids, cholecystectomy today Surgery GI following --Klebsiella pneumonia; bacteremia/sepsis Secondary to acute cholecystitis/pancreatitis Continue Zosyn, ID consult, repeat cultures --Leukocytosis; secondary to sepsis, Klebsiella bacteremia Acute cholecystitis, acute pancreatitis --Acute gallstone pancreatitis MRCP (cholelithiasis ,no obstruction or choledocholithiasis Lipase levels trending down, however patient has severe abdominal pain Nausea, GI following --Acute transaminitis Trending down, GI following --Lactic acidosis; improved --Ongoing tobacco use; smoking cessation Nicotine patch as needed Preventative counseling spent 17 minutes --DVT prophylaxis; SCDs Closely monitor the patient and adjust the management as needed Plan of care reviewed with the patient and her nurse History Interval history: Patient seen and examined this morning Patient's chart, medications, overnight events reviewed Patient is scheduled for cholecystectomy today Nothing by mouth status Patient complaints of abdominal pain and nausea Vital signs noted Hospitalist Physical - Constitutional Vitals: Temp Pulse Resp BP Pulse Ox 98.6 F 96 H 20 137/81 97 10/08/19 06:24 10/08/19 06:24 10/08/19 06:24 10/08/19 06:24 10/08/19 06:24 General appearance: Present: mild distress, well-nourished - EENT Eyes: Present: PERRL, EOM intact - Neck Neck: Present: supple, normal ROM - Respiratory Respiratory effort: normal Respiratory: bilateral: diminished, negative: rales, rhonchi, wheezing - Cardiovascular Rhythm: regular Heart Sounds: Present: S1 & S2 - Extremities Extremities: no ischemia, No edema - Abdominal General gastrointestinal: soft, tender (no guarding and no rigidity), normal bowel sounds - Integumentary Integumentary: Present: clear, warm - Psychiatric Psychiatric: appropriate mood/affect, cooperative - Neurologic Neurologic: moves all extremities Results - Labs CBC & Chem 7: 10/08/19 06:47 10/08/19 06:47 Labs: Laboratory Last Values WBC 15.6 K/mm3 (4.5-11.0) H 10/08/19 06:47 RBC 3.61 M/mm3 (3.65-5.03) L 10/08/19 06:47 Hgb 8.8 gm/dl (10.1-14.3) L 10/08/19 06:47 Hct 27.7 % (30.3-42.9) L 10/08/19 06:47 MCV 77 fl (79-97) L 10/08/19 06:47 MCH 24 pg (28-32) L 10/08/19 06:47 MCHC 32 % (30-34) 10/08/19 06:47 RDW 15.5 % (13.2-15.2) H 10/08/19 06:47 Plt Count 257 K/mm3 (140-440) 10/08/19 06:47 Lymph % (Auto) 6.7 % (13.4-35.0) L 10/08/19 06:47 [place] % (Auto) 4.0 % (0.0-7.3) 10/08/19 06:47 Eos % (Auto) 0.2 % (0.0-4.3) 10/08/19 06:47 Baso % (Auto) 0.3 % (0.0-1.8) 10/08/19 06:47 Lymph # 1.0 K/mm3 (1.2-5.4) L 10/08/19 06:47 [place] # 0.6 K/mm3 (0.0-0.8) 10/08/19 06:47 Eos # 0.0 K/mm3 (0.0-0.4) 10/08/19 06:47 Baso # 0.0 K/mm3 (0.0-0.1) 10/08/19 06:47 Add Manual Diff Complete 10/06/19 01:57 Total Counted 100 10/06/19 01:57 Seg Neutrophils % 88.8 % (40.0-70.0) H 10/08/19 06:47 Seg Neuts % (Manual) 88.0 % (40.0-70.0) H 10/06/19 01:57 Band Neutrophils % 4.0 % 10/06/19 01:57 Lymphocytes % (Manual) 7.0 % (13.4-35.0) L 10/06/19 01:57 Reactive Lymphs % (Man) 0 % 10/06/19 01:57 Monocytes % (Manual) 1.0 % (0.0-7.3) 10/06/19 01:57 Eosinophils % (Manual) 0 % (0.0-4.3) 10/06/19 01:57 Basophils % (Manual) 0 % (0.0-1.8) 10/06/19 01:57 Metamyelocytes % 0 % 10/06/19 01:57 Myelocytes % 0 % 10/06/19 01:57 Promyelocytes % 0 % 10/06/19 01:57 Blast Cells % 0 % 10/06/19 01:57 Nucleated RBC % Not Reportable 10/06/19 01:57 Seg Neutrophils # 13.9 K/mm3 (1.8-7.7) H 10/08/19 06:47 Seg Neutrophils # Man 12.9 K/mm3 (1.8-7.7) H 10/06/19 01:57 Band Neutrophils # 0.6 K/mm3 10/06/19 01:57 Lymphocytes # (Manual) 1.0 K/mm3 (1.2-5.4) L 10/06/19 01:57 Abs React Lymphs (Man) 0.0 K/mm3 10/06/19 01:57 Monocytes # (Manual) 0.1 K/mm3 (0.0-0.8) 10/06/19 01:57 Eosinophils # (Manual) 0.0 K/mm3 (0.0-0.4) 10/06/19 01:57 Basophils # (Manual) 0.0 K/mm3 (0.0-0.1) 10/06/19 01:57 Metamyelocytes # 0.0 K/mm3 10/06/19 01:57 Myelocytes # 0.0 K/mm3 10/06/19 01:57 Promyelocytes # 0.0 K/mm3 10/06/19 01:57 Blast Cells # 0.0 K/mm3 10/06/19 01:57 WBC Morphology Not Reportable 10/06/19 01:57 Hypersegmented Neuts Not Reportable 10/06/19 01:57 Hyposegmented Neuts Not Reportable 10/06/19 01:57 Hypogranular Neuts Not Reportable 10/06/19 01:57 Smudge Cells Not Reportable 10/06/19 01:57 Toxic Granulation Not Reportable 10/06/19 01:57 Toxic Vacuolation Not Reportable 10/06/19 01:57 Dohle Bodies Not Reportable 10/06/19 01:57 Pelger-Huet Anomaly Not Reportable 10/06/19 01:57 Meg Rods Not Reportable 10/06/19 01:57 Platelet Estimate Consistent w auto 10/06/19 01:57 Clumped Platelets Not Reportable 10/06/19 01:57 Plt Clumps, EDTA Not Reportable 10/06/19 01:57 Large Platelets Not Reportable 10/06/19 01:57 Giant Platelets Not Reportable 10/06/19 01:57 Platelet Satelliting Not Reportable 10/06/19 01:57 Plt Morphology Comment Not Reportable 10/06/19 01:57 RBC Morphology Not Reportable 10/06/19 01:57 Dimorphic RBCs Not Reportable 10/06/19 01:57 Polychromasia Not Reportable 10/06/19 01:57 Hypochromasia 1+ 10/06/19 01:57 Poikilocytosis Not Reportable 10/06/19 01:57 Anisocytosis Not Reportable 10/06/19 01:57 Microcytosis Not Reportable 10/06/19 01:57 Macrocytosis Not Reportable 10/06/19 01:57 Spherocytes Not Reportable 10/06/19 01:57 Pappenheimer Bodies Not Reportable 10/06/19 01:57 Sickle Cells Not Reportable 10/06/19 01:57 Target Cells Few 10/06/19 01:57 Tear Drop Cells Not Reportable 10/06/19 01:57 Ovalocytes Not Reportable 10/06/19 01:57 Helmet Cells Not Reportable 10/06/19 01:57 Chaves-[place] Bodies Not Reportable 10/06/19 01:57 [place] Rings Not Reportable 10/06/19 01:57 Francis Cells Not Reportable 10/06/19 01:57 Bite Cells Not Reportable 10/06/19 01:57 Crenated Cell Not Reportable 10/06/19 01:57 Elliptocytes Not Reportable 10/06/19 01:57 Acanthocytes (Spur) Not Reportable 10/06/19 01:57 Rouleaux Not Reportable 10/06/19 01:57 Hemoglobin C Crystals Not Reportable 10/06/19 01:57 Schistocytes Not Reportable 10/06/19 01:57 Malaria parasites Not Reportable 10/06/19 01:57 Benoit Bodies Not Reportable 10/06/19 01:57 Hem Pathologist Commnt No 10/06/19 01:57 PT 13.4 Sec. (12.2-14.9) 10/06/19 04:58 INR 1.01 (0.87-1.13) 10/06/19 04:58 APTT 25.4 Sec. (24.2-36.6) 10/06/19 04:58 Sodium 141 mmol/L (137-145) 10/08/19 06:47 Potassium 3.5 mmol/L (3.6-5.0) L 10/08/19 06:47 Chloride 102.2 mmol/L (98-107) 10/08/19 06:47 Carbon Dioxide 22 mmol/L (22-30) 10/08/19 06:47 Anion Gap 20 mmol/L 10/08/19 06:47 BUN 7 mg/dL (7-17) 10/08/19 06:47 Creatinine 0.5 mg/dL (0.7-1.2) L 10/08/19 06:47 Estimated GFR > 60 ml/min 10/08/19 06:47 BUN/Creatinine Ratio 14 % 10/08/19 06:47 Glucose 76 mg/dL (65-100) 10/08/19 06:47 Lactic Acid 1.00 mmol/L (0.7-2.0) 10/06/19 08:31 Calcium 8.4 mg/dL (8.4-10.2) 10/08/19 06:47 Magnesium 1.80 mg/dL (1.7-2.3) 10/07/19 05:27 Total Bilirubin 1.60 mg/dL (0.1-1.2) H 10/08/19 06:47 AST 224 units/L (5-40) H 10/08/19 06:47 ALT 453 units/L (7-56) H 10/08/19 06:47 Alkaline Phosphatase 343 units/L (35-129) H 10/08/19 06:47 Total Creatine Kinase 61 units/L (30-135) 10/06/19 04:58 Total Protein 6.7 g/dL (6.3-8.2) 10/08/19 06:47 Albumin 3.1 g/dL (3.9-5) L 10/08/19 06:47 Albumin/Globulin Ratio 0.9 % 10/08/19 06:47 Triglycerides 46 mg/dL (2-149) 10/07/19 05:27 Lipase 128 units/L (13-60) H 10/08/19 06:47 Urine Color Emilia (Yellow) 10/06/19 05:52 Urine Turbidity Cloudy (Clear) 10/06/19 05:52 Urine pH 5.0 (5.0-7.0) 10/06/19 05:52 Ur Specific [place] 1.033 (1.003-1.030) H 10/06/19 05:52 Urine Protein 30 mg/dl mg/dL (Negative) 10/06/19 05:52 Urine Glucose (UA) Neg mg/dL (Negative) 10/06/19 05:52 Urine Ketones Tr mg/dL (Negative) 10/06/19 05:52 Urine Blood Neg (Negative) 10/06/19 05:52 Urine Nitrite Neg (Negative) 10/06/19 05:52 Urine Bilirubin Neg (Negative) 10/06/19 05:52 Urine Urobilinogen 2.0 mg/dL (<2.0) 10/06/19 05:52 Ur Leukocyte Esterase Sm (Negative) 10/06/19 05:52 Urine WBC (Auto) 2.0 /HPF (0.0-6.0) 10/06/19 05:52 Urine RBC (Auto) 4.0 /HPF (0.0-6.0) 10/06/19 05:52 U Epithel Cells (Auto) 35.0 /HPF (0-13.0) H 10/06/19 05:52 Urine Mucus 3+ /HPF 10/06/19 05:52 Acetaminophen < 5.0 ug/mL (10.0-30.0) L 10/06/19 04:58 Hepatitis A IgM Ab Non-reactive (NonReactive) 10/06/19 04:58 Hep Bs Antigen Non-reactive (Negative) 10/06/19 04:58 Hep B Core IgM Ab Non-reactive (NonReactive) 10/06/19 04:58 Hepatitis C Antibody Non-reactive (NonReactive) 10/06/19 04:58 Active Medications - Current Medications Current Medications: Generic Name Dose Route Start Last Admin Trade Name Freq PRN Reason Stop Dose Admin Hydromorphone HCl 1 mg 10/07/19 13:46 10/08/19 10:17 Dilaudid IV 1 mg Q4H PRN Administration Pain , Severe (7-10) Hydrophilic Ointment 1 applic 10/07/19 15:00 10/08/19 10:14 Vaseline Lip Therapy TP 1 applic DIRECT PRN Administration Dry Lips Piperacillin Sod/Tazobactam Sod 4.5 gm in 100 mls @ 200 mls/hr 10/06/19 14:00 10/08/19 05:38 Zosyn/Ns 4.5gm/100ml IV 200 mls/hr Q8HR BRIDGETTE Administration Protocol Potassium Chloride 30 meq/ 515 mls @ 125 mls/hr 10/07/19 08:00 10/07/19 16:39 Sodium Chloride IV 10/08/19 12:08 125 mls/hr DIRECT BRIDGETTE Administration Potassium Chloride 20 meq/ 1,010 mls @ 125 mls/hr 10/07/19 08:46 10/08/19 0 1:56 Sodium Chloride IV 125 mls/hr DIRECT BRIDGETTE Administration Ketorolac Tromethamine 15 mg 10/07/19 17:01 10/08/19 08:21 Toradol IV 10/12/19 17:00 15 mg Q6H PRN Administration Pain, Mild (1-3) Pantoprazole Sodium 40 mg 10/06/19 10:00 10/08/19 10:15 Protonix IV 40 mg QDAY BRIDGETTE Administration
[2019-10-08] MEDS ORDERED: HYDROmorphone 1 MG/1 ML INJ ONE (11:44)
[2019-10-08] MEDS ORDERED: PROPOFOL 200 MG/20 ML VIAL IV ONE (11:44)
[2019-10-08] MEDS ORDERED: LIDOCAINE (1%) 10 MG/1 ML VIAL 20 ML MDV ONE (11:52)
[2019-10-08] MEDS ORDERED: BUPIVACAINE-EPINEPHRINE/PF 0.5%-1:200,000 (30 ML) VIAL INFILTRATI ONE ×2 (11:52→13:24)
[2019-10-08] MEDS ORDERED: SODIUM CHLORIDE 0.9% 50 ML ONE (11:52)
[2019-10-08] MEDS: LACTATED RINGERS 1,000 ML IV SCH ×2 (12:00→16:20)
[2019-10-08] MEDS ORDERED: ROCURONIUM 50 MG/5 ML INJ IV ONE (12:06)
[2019-10-08] MEDS ORDERED: LIDOCAINE MPF (2%) 20 MG/1 ML VIAL 5 ML ONE (12:06)
[2019-10-08] MEDS ORDERED: MIDAZOLAM 2 MG/2 ML INJ ONE (12:36)
[2019-10-08] MEDS ORDERED: LIDOCAINE (1%) 10 MG/1 ML VIAL 20 ML MDV INFILTRATI ONE (13:24)
[2019-10-08] MEDS ORDERED: SODIUM CHLORIDE 0.9% IRR 1,500 ML BOTTLE IR ONE (13:25)
[2019-10-08] MEDS ORDERED: LACTATED RINGERS 1,000 ML ONE (14:08)
[2019-10-08] MEDS ORDERED: GLYCOPYRROLATE 0.4 MG/2 ML INJ ONE (14:45)
[2019-10-08] MEDS ORDERED: NEOSTIGMINE 10MG/10 ML INJ MDV ONE (14:45)
[2019-10-08] MEDS ORDERED: ONDANSETRON 4 MG/2 ML INJ ONE (14:47)
[2019-10-08] MEDS ORDERED: KETOROLAC 30 MG/1 ML INJ ONE (14:47)
[2019-10-08] MEDS ORDERED: HYDROcodone/ACETAMINOPHEN 5-325 MG TAB PO PRN (14:58)
--- NOTE | 2019-10-08 15:04 | Post Operative Note ---
Date of procedure: 10/08/19 (dictation:[id number]) Pre-op diagnosis: acute cholecystitis Post-op diagnosis: same Findings: enlarged, thickened GB with dense adhesions Procedure: robotic assisted lap cholecystectomy IVF - 1800cc EBL - ~50cc Anesthesia: DARBY Surgeon: KINGSTON FUENTES Yard Loader Operator: PAM RAGLAND Pathology: list (gallbladder) Specimen disposition: to lab Condition: stable Disposition: PACU
--- NOTE | 2019-10-08 16:39 | Operative Report ---
PREOPERATIVE DIAGNOSES: 1. Gallstone pancreatitis. 2. Chronic cholecystitis. POSTOPERATIVE DIAGNOSES: 1. Gallstone pancreatitis. 2. Acute exacerbation of chronic cholecystitis. ATTENDING PHYSICIAN: Keiko Wells MD PUBLIC RELATIONS: Dr. Bhatt. ANESTHESIA: General. ESTIMATED BLOOD LOSS: Approximately 50 mL. FLUIDS: 1800 mL. FINDINGS: Dense adhesions between the surrounding tissue including omentum and the gallbladder. Gallbladder was markedly distended, thickened walled. The content was a very thick difficult to aspirate fluid. The plane between the gallbladder and the fossa was markedly edematous. Cystic duct was short. The common duct was easily seen. SPECIMENS: Gallbladder. DRAINS: None. DISPOSITION: Stable, transferred to Recovery Room. INDICATIONS: This is a 49-year-old female who presented with acute onset of severe abdominal pain. She had had attacks of abdominal pain in the past, but this one was the worst. LFTs were markedly elevated. Lipase was elevated to suggest gallstone pancreatitis. The patient underwent an MRCP, which was negative. She was ultimately assessed to be in need for cholecystectomy. Procedure, risks, benefits were explained to the patient. Risks included but were not limited to infection, bleeding, pain, injury to surrounding structures, possible need for open procedure, possible need for further procedures in the future. The patient understood and consented. OPERATIVE NOTE: The patient was brought to the operating room and placed on the table in supine position. After adequate general anesthesia was established, the patient was prepped and draped in usual sterile fashion. SCDs were in place. The patient was already on antibiotics. Timeout was called. I began by placing a Veress needle in left upper quadrant. I was able to insufflate on the first attempt. This was replaced with a 5 mm port that was inserted using the Optiview technique. We entered the peritoneal cavity safely. There was no injury to the underlying structures. Under direct vision, we placed two 8 mm ports on the right side of the abdomen and a 12 mm at the umbilicus. We then replaced the 5 mm port with an 8. Gauze was inserted into the abdomen. I thought based on the initial appearance of the gallbladder, I may need a stitch to hold it up so a 2-0 silk stitch was inserted into the abdomen. We then docked the robot and I moved to the console. The patient was in reverse Trendelenburg position and rotated to the left. With gentle dissection, blunt dissection, I peeled down the omentum and surrounding tissue away from the gallbladder. I was able to do that with a combination of blunt dissection and bipolar cautery. Once I had gotten most of it down, we then elevated the gallbladder over the liver edge. At this point, it looked as though most of the disease within the gallbladder itself. The area of the triangle had very minimal edema; there was some, however, we could clearly see where the cystic duct was. It was short. We could clearly see the common duct. I would have expected this area to be heavily thickened and inflamed with the usual acute cholecystitis. I began on the lateral border opening up the covering of the gallbladder. As the bed was markedly edematous, I was able to gently peel off the gallbladder from the liver bed. Small points of bleeding were cauterized. I then took down the coverings around the triangle of [place]ot. In doing so, I made a small clayton in the node which led to some bleeding. This was controlled with bipolar. I was eventually able to create a generous critical view. We dissected out the cystic duct very clearly. We could see clearly going into the common duct and then the cystic artery. At this point, Dr. Bhatt and I were discussed in the situation. Our original plan was to do an IOC. However, this morning's labs showed that the total bilirubin was trending down. The LFTs were getting better. Lipase was getting better and we had a negative MRCP. Therefore, all in all, there was no suggestion that she had continued blockage. We clearly could identify the anatomy. There was no question whatsoever. Therefore, I elected not to do the IOC as I did not think it would add anything to the case. Clip was placed distally on the cystic artery. Cystic artery was divided sharply with electrocautery also. We then placed 2 clips distally, 1 proximally on the cystic duct. Normally would place three distally; however, the cystic duct was short. I could clearly see where the junction was to the common duct, so I felt very comfortable placing the clips. Cystic duct was divided sharply. We could clearly see the lumen of the duct once we divided it. The remainder of dissection was a combination of cautery and peeling the gallbladder off the bed. Once it was completely removed, we left it on the side. Overall, we had fairly good hemostasis. We could clearly see the clips, they were intact. There was no leak of bile or blood. We then transition to a regular laparoscopic case. We undocked the robot, I placed the specimen in the EndoCatch bag. We had 2 clips that did not fire properly, so they were placed in the bag as well. The bag was left on the side. We thoroughly irrigated out the bed. I thought in the upper aspect, there was not active bleeding, but some blood was visible, so in case there was a very small leak we placed Surgicel in that area. The rest of the abdomen was thoroughly irrigated and suctioned out. Everything else looked very good. We then removed the EndoCatch bag from the umbilical port site. Because it was so large and she ended up having large stones, I ended up having to open up the fascia further as well as the skin in order to get this large gallbladder out. In doing so, closing it with the standard Rico-Lucille fascial closure device was not possible. Therefore, I closed part of it with an open technique using a [id number] stitch using a 2-0 Prolene stitch and then with the Rico-Lucille we placed two more stitches and then got a very nice closure. We checked from the inside to make sure that nothing was caught in the stitch. Everything looked good. We then removed the ports under direct vision, making sure there was no bleeding. Abdomen was desufflated. Additional local was injected into all the incision sites. Skin was closed with 4-0 Monocryl subcuticular stitches. Skin was cleaned and dried. Dermabond was placed. The patient tolerated the procedure well. There were no complications. All counts were correct at the end of the case. Per the patient's request, I called the son to let him know how everything went. JOB# [id number] FARRAH/TAMMY
[2019-10-09 05:25] LABS: Albumin 3.2 g/dL (3.9-5); Bilirubin,Direct 0.4 mg/dL (0-0.2)
[2019-10-09] MEDS: HYDROmorphone 1 MG/1 ML INJ IV PRN ×2 (06:02→12:34)
[2019-10-09] MEDS: LACTATED RINGERS 1,000 ML IV SCH (06:48)
[2019-10-09] MEDS: PIPERACIL/TAZOBACTA 4.5/NS 100 4.5 GM/100 ML VIAL IV SCH ×2 (06:48→13:58)
[2019-10-09] MEDS: PANTOPRAZOLE 40 MG INJ IV SCH (09:55)
--- NOTE | 2019-10-09 10:12 | Gastroenterology Progress Note ---
Assessment and Plan - Patient Problems (1) Acute gallstone pancreatitis Current Visit: Yes Status: Acute Plan to address problem: - MRCP negative for stones. - S/P CCY with resolving LFTs and clinically marked improvement. - Will sign off as expect d/c later today. - Will have patient f/u in the clinic in 4-6 weeks to repeat LFTs and lipase, to assure they have returned to normal. Subjective Date of service: 10/09/19 Principal diagnosis: GS Pancreatitis Interval history: The patient feels markedly better after CCY. She has minimal tenderness, and is tolerating full liquid diet without N/V. No F/C overnight. Objective - Constitutional Vitals: Temp Pulse Resp BP Pulse Ox 98.6 F 98 H 18 142/90 90 10/09/19 05:57 10/09/19 05:57 10/09/19 06:32 10/09/19 05:57 10/09/19 05:57 General appearance: no acute distress - Respiratory Respiratory effort: normal Respiratory: bilateral: CTA - Cardiovascular Rhythm: regular Heart Sounds: Present: S1 & S2 - Gastrointestinal General gastrointestinal: Present: soft, tender (Mild and appropriate post-CCY), non-distended - Labs CBC & Chem 7: 10/08/19 06:47 10/08/19 06:47 Labs: Laboratory Results - last 24 hr 10/09/19 04:39 Total Bilirubin 0.80 Direct Bilirubin 0.4 H Indirect Bilirubin 0.4 AST 110 H ALT 309 H Alkaline Phosphatase 307 H Total Protein 6.6 Albumin 3.2 L Albumin/Globulin Ratio 0.9
--- NOTE | 2019-10-09 14:31 | Progress Note ---
Assessment and Plan - Patient Problems (1) Acute gallstone pancreatitis Current Visit: Yes Status: Acute Plan to address problem: Pt stable. s/p robotic assisted lap beto. POD#1. Appears to be doing well. Okay for discharge to home. May advance diet as tolerated. - Follow-up in about 2 weeks - diet as tolerated - may shower tomorrow. Pat dry wounds - No strenuous activity or heavy lifting. - no need for home abx. Please call with questions. Subjective Date of service: 10/09/19 Patient Reports: Positive: no new complaints, feels better, pain is less, tolerating liquids well. Negative: nausea, vomiting Objective Vital Signs - 12hr 10/09/19 10/09/19 10/09/19 05:57 06:02 06:32 Temperature 98.6 F Pulse Rate 98 H Respiratory 20 19 18 Rate Blood Pressure 142/90 O2 Sat by Pulse 90 Oximetry - General physical appearance no distress, no pain, other (looks better) - Respiratory normal expansion, normal respiratory effort - Abdomen soft, surgical scars (C/D/I) - Psychiatric oriented to time, oriented to person, oriented to place, speech is normal, memory intact - Labs 10/08/19 06:47 10/08/19 06:47 Diabetes panel 10/09/19 Range/Units 04:39 AST 110 H (5-40) units/L ALT 309 H (7-56) units/L Alkaline Phosphatase 307 H (35-129) units/L Total Protein 6.6 (6.3-8.2) g/dL Albumin 3.2 L (3.9-5) g/dL Calcium panel 10/09/19 Range/Units 04:39 Albumin 3.2 L (3.9-5) g/dL Adrenal panel 10/09/19 Range/Units 04:39 Total Bilirubin 0.80 (0.1-1.2) mg/dL AST 110 H (5-40) units/L ALT 309 H (7-56) units/L Alkaline Phosphatase 307 H (35-129) units/L Total Protein 6.6 (6.3-8.2) g/dL Albumin 3.2 L (3.9-5) g/dL
--- NOTE | 2019-10-09 15:46 | Discharge Summary ---
Providers - Providers Date of Admission: 10/06/19 07:50 Date of discharge: 10/09/19 Attending physician: JEFFERY CAVAZOS 10/06/19 07:58 Consult to Physician [CONS] Routine Comment: DR OLE LAND W/DR OLMEDO @[id number] Consulting Provider: LEANDRO OLMEDO Physician Instructions: Reason For Exam: Acute pancreatitis/Ac transaminitis/Ac cholecystit 10/06/19 13:52 Consult to Physician [CONS] Routine Comment: pancreatitis/acute cholecystitis? Consulting Provider: PAM RAGLAND Physician Instructions: consult surgery Reason For Exam: possible cholecystectomy 10/08/19 19:06 Consult to Physician [CONS] Routine Comment: Consulting Provider: ZEHRA CASTRO Physician Instructions: Reason For Exam: Klebsiella bacteremia/acute cholecystitis [facility] Condition: Stable Disposition: DC-01 TO HOME OR SELFCARE Time spent for discharge: 32 min Core Measure Documentation - Palliative Care Palliative Care/ Comfort Measures: Not Applicable - Core Measures Any of the following diagnoses?: none Exam - Constitutional Vitals: Temp Pulse Resp BP Pulse Ox 99.2 F 101 H 22 149/79 87 10/09/19 11:41 10/09/19 11:41 10/09/19 11:41 10/09/19 11:41 10/09/19 11:41 Plan Activity: advance as tolerated, fall precautions Diet: regular Additional Instructions: - Follow-up with Dr. Wells in about 2 weeks. - diet as tolerated. - may shower tomorrow. Pat dry wounds. - No strenuous activity or heavy lifting. ID recommend 2 weeks of Levaquin 750 daily. For Klebsiella pneumonia bacteremia Follow up with: KINGSTON WELLS MD [Staff Physician] - 14 Days [place] YANADAYTON MD TONY [Primary Care Provider] - 3-5 Days RENE ABEL MD [Staff Physician] - 14 Days Prescriptions: levoFLOXacin [Levaquin] 750 mg PO QDAY #14 tablet Pantoprazole [Protonix TAB] 20 mg PO QDAY #14 tablet. Ketorolac [Toradol] 10 mg PO Q6H PRN #20 tablet PRN Reason: Pain
--- NOTE | 2019-10-09 16:38 | Consultation ---
History of Present Illness - Reason for Consult Consult date: 10/09/19 - History of Present Illness 49 yo F no PMHx admitted with abdominal pain in the RUQ. She has been having these symptoms for some time but deferred in seeking medical care. The symptoms have been progressive which prompted her presentation to the hospital. She was found to have cholecystitis and was taken to the OR for a cholecystectomy on 10/08/2019. Blood culturs positive for K pneumoniae. Imaging personally reviewed: CTAP: cholecystitis Review of Systems: Bold if positive, otherwise negative General: fevers, chills, rigors HEENT: visual disturbance, diplopia, eye pain Respiratory: cough, sputum, hemoptysis, shortness of breath Cardiovascular: chest pain, syncope Gastrointestinal: nausea, vomiting, diarrhea, abdominal pain Genitourinary: dysuria, hematuria, flank pain Musculoskeletal: neck pain, back pain, joint pain, edema Neurologic: headaches, seizures Hematologic: easy bruising or bleeding Endocrine: night sweats, acute weight loss Skin: rash, jaundice, redness Psychiatric: suicidal, homicidal ideation Past History Past Medical History: other (Endometriosis) Past Surgical History: No surgical history Social history: lives with family, smoking. denies: alcohol abuse, prescription drug abuse, IV drug use Family history: hypertension Medications and Allergies Allergies Allergy/AdvReac Type Severity Reaction Status Date / Time No Known Allergies Allergy Verified 10/06/19 01:39 Home Medications Medication Instructions Recorded Confirmed Last Taken Type Ketorolac [Toradol] 10 mg PO Q6H PRN #20 tablet 10/09/19 Unknown Rx Pantoprazole [Protonix TAB] 20 mg PO QDAY #14 tablet. 10/09/19 Unknown Rx Active Meds: Active Medications Acetaminophen/Hydrocodone Bitart (Forsyth 5/325) 2 each PO Q6H PRN PRN Reason: Pain, Moderate (4-6) Hydromorphone HCl (Dilaudid) 1 mg IV Q4H PRN PRN Reason: Pain , Severe (7-10) Last Admin: 10/09/19 12:34 Dose: 1 mg Documented by: Hydrophilic Ointment (Vaseline Lip Therapy) 1 applic TP DIRECT PRN PRN Reason: Dry Lips Last Admin: 10/08/19 10:14 Dose: 1 applic Documented by: Piperacillin Sod/Tazobactam Sod (Zosyn/Ns 4.5gm/100ml) 4.5 gm in 100 mls @ 200 mls/hr IV Q8HR BRIDGETTE; Protocol Last Admin: 10/09/19 13:58 Dose: 200 mls/hr Documented by: Potassium Chloride 20 meq/ (Sodium Chloride) 1,010 mls @ 125 mls/hr IV DIRECT BRIDGETTE Last Admin: 10/08/19 01:56 Dose: 125 mls/hr Documented by: Lactated Ringer's (Lactated Ringers) 1,000 mls @ 75 mls/hr IV DIRECT BRIDGETTE Last Admin: 10/09/19 06:48 Dose: 75 mls/hr Documented by: Ketorolac Tromethamine (Toradol) 15 mg IV Q6H PRN PRN Reason: Pain, Mild (1-3) Stop: 10/12/19 17:00 Last Admin: 10/08/19 21:21 Dose: 15 mg Documented by: Pantoprazole Sodium (Protonix) 40 mg IV QDAY [facility] Last Admin: 10/09/19 09:55 Dose: 40 mg Documented by: Physical Examination - Physical Exam Narrative exam: Constitutional: Alert, cooperative. No acute distress Head, Ears, Nose: Normocephalic, atraumatic. External ears, nose normal Eyes: Conjunctivae/corneas clear. No icterus. No ptosis. Neck: Supple, no meningeal signs Oral: dentition fair, no thrush Cardiovascular: S1, S2 normal. Respiratory: Good air entry, clear to auscultation bilaterally GI: Soft, non-tender; bowel sounds normal. No peritoneal signs. Lap beto incisions look good Musculoskeletal: No pedal edema, no cyanosis. Skin: No rash or abscess Hem/Lymphatic: No palpable cervical or supraclavicular nodes. No lymphangitis Psych: Mood ok. Affect normal Neurological: Awake, alert, oriented. No gross abnormality - Constitutional Vitals: Vital Signs Temp Pulse Resp BP Pulse Ox 99.2 F 101 H 22 149/79 87 10/09/19 11:41 10/09/19 11:41 10/09/19 11:41 10/09/19 11:41 10/09/19 11:41 Temperature -Last 24 Hours Temperature 99.2 F Temperature 98.6 F Temperature 98.8 F Results - Labs CBC & Chem 7: 10/08/19 06:47 10/08/19 06:47 Labs: Abnormal lab results 10/09/19 Range/Units 04:39 Direct Bilirubin 0.4 H (0-0.2) mg/dL AST 110 H (5-40) units/L ALT 309 H (7-56) units/L Alkaline Phosphatase 307 H (35-129) units/L Albumin 3.2 L (3.9-5) g/dL Assessment and Plan Cultures: Blood cultures: K pneumoniae A&P: 49 yo F pno PMHx admitted with cholecystitis and found to have K pneumoniae bacteremia. #Acute sepsis: present with leukocytosis and tachycardia, with previous fevers. Secondary to K pneumoniae bacteremia #K pneumoniae bacteremia - secondary to acute cholecystitis. Will need 2 weeks of therapy post-lap beto. #Acute cholecysititis: s/p lap beto. Recommendations: - stop Zosyn - start levofloxacin 750mg q24h. - Ok for discharge from infectious disease perspective on PO levofloxacin 750mg q24h until - follow up in my clinic within 2 weeks. Thank you for the consult, we will continue to follow. Please call with isaak kim. Keyonna Puente MD [facility] M: [phone] O: [phone] F: [phone]
[2019-10-09 18:42] VITALS: BP 150/74
== END 2019-10-09 17:45 | disposition home or self-care (01) | DRG 853 ==
LOC: ED 01:22 → 3A 07:50
PROVIDERS: ADMIT Internal Medicine; ATTEND Internal Medicine
PROC: 0FT44ZZ Resection of Gallbladder, Percutaneous Endoscopic Approach (ICD-10-PCS; principal; 2019-10-08)
PROC: 8E0W4CZ Robotic Assisted Procedure of Trunk Region, Percutaneous Endoscopic Approach (ICD-10-PCS; 2019-10-08)
DX: A41.9 Sepsis, unspecified organism (principal); K85.10 Biliary acute pancreatitis without necrosis or infection; J15.0 Pneumonia due to Klebsiella pneumoniae; E87.2 Acidosis; K81.1 Chronic cholecystitis; R74.0 Nonspecific elevation of levels of transaminase and lactic acid dehydrogenase [LDH]; F17.210 Nicotine dependence, cigarettes, uncomplicated; K21.9 Gastro-esophageal reflux disease without esophagitis; Z71.6 Tobacco abuse counseling; Z82.49 Family history of ischemic heart disease and other diseases of the circulatory system
CPT/HCPCS: 36415; 71045; 74177; 74181; 76705; 80048; 80053; 80074; 80076; 80320; 81001; 82140; 82550; 83690; 83735; 84478; 85007; 85025; 85610; 85730; 87040; 87076; 87186; 88304; 93005; 93010; 99406; G0378; C9113; G0480; J1170; J1885; J2250; J2270; J2405; J2543; J2704; J2710; J3480; J7030; J7040; J7120; Q9967

== ENCOUNTER 2019-11-05 11:49 | Emergency (ER) | payer SELFPAY ==
[2019-11-05] MEDS ORDERED: MORPHINE 4 MG/1 ML INJ IV ONE (12:16)
[2019-11-05] MEDS ORDERED: FAMOTIDINE 20 MG/2 ML INJ IV ONE (12:16)
[2019-11-05] MEDS ORDERED: ONDANSETRON 4 MG/2 ML INJ IV ONE (12:16)
[2019-11-05] MEDS ORDERED: SODIUM CHLORIDE 0.9% 1000 ML 2,000 ML IV ONE (12:16)
--- NOTE | 2019-11-05 12:17 | Emergency Department Report ---
<JOLYNN MAJOR S - Last Filed: 11/05/19 16:29> ED General Adult HPI - General Chief complaint: Abdominal Pain Stated complaint: ABD PAIN Time Seen by Provider: 11/05/19 12:02 - Related Data Previous Rx's Medication Instructions Recorded Last Taken Type Ketorolac [Toradol] 10 mg PO Q6H PRN #20 tablet 10/09/19 Unknown Rx Pantoprazole [Protonix TAB] 20 mg PO QDAY #14 tablet. 10/09/19 Unknown Rx levoFLOXacin [Levaquin] 750 mg PO QDAY #14 tablet 10/09/19 Unknown Rx Allergies Allergy/AdvReac Type Severity Reaction Status Date / Time No Known Allergies Allergy Verified 10/06/19 01:39 ED Past Medical Hx - Medications Home Medications: Home Medications Medication Instructions Recorded Confirmed Last Taken Type Ketorolac [Toradol] 10 mg PO Q6H PRN #20 tablet 10/09/19 Unknown Rx Pantoprazole [Protonix TAB] 20 mg PO QDAY #14 tablet. 10/09/19 Unknown Rx levoFLOXacin [Levaquin] 750 mg PO QDAY #14 tablet 10/09/19 Unknown Rx ED Medical Decision Making - Lab Data Result diagrams: 11/05/19 12:34 11/05/19 12:34 - Medical Decision Making I was signed out this patient by Dr. Cavanaugh to follow patient's CT angiography of the chest, CT of the abdomen and pelvis, second troponin and a repeat EKG. The CT angiography did not show any signs of PE or any other acute process. CT of the abdomen and pelvis showed resolving hematoma and normal changes postcholecystectomy but otherwise no acute process. Second troponin is negative. EKG is normal without ST elevation PR or dysrhythmia. Patient's vital signs are stable at this point. The patient will be discharged home to follow-up with primary care, her general surgeon, and was given a referral for cardiology. She was instructed to return to the emergency department with any worsening of her symptoms or any acute distress. ED Disposition Clinical Impression: Abdominal pain, Atypical chest pain Disposition: - TO HOME OR SELFCARE Is pt being admited?: No Condition: Stable Instructions: Chest Pain (ED), Abdominal Pain (ED) Additional Instructions: Please follow-up with your primary care physician and your general surgeon in the next few days. I have also given you a referral for a local cardiology group, [facility], to follow-up regarding your chest pains. Please return to the emergency department with any worsening of your symptoms or any acute distress. 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 She was admitted to this hospital last month for abdominal pain, and was found to have acute gallstone pancreatitis, transaminitis, cholecystitis. Patient had MRCP, CT scan abdomen pelvis, and right upper quadrant ultrasound performed. She had a robotic assisted cholecystectomy performed on 10/08/2019 She was also found to have pneumonia, Klebsiella, and was started on 2 weeks of Levaquin therapy, which she completed successfully. She was able to follow-up with her general surgeon. She presents to the ER today with a complaint of epigastric and right upper quadrant pain, intermittent breathing difficulty, burning discomfort in her substernal region, and brown stool mixed with dark red blood. Her abdominal pain basically got better after her surgery. Her new pain started over the past day or so. It is throbbing and sharp, increases with palpation and decreases with rest. The patient denies leg pain and leg swelling. She is not having chest pain at the moment. She defecated normally yesterday. She had one episode of brown stool with red blood earlier on today. It was dark red. She denies irritative and obstructive urinary symptoms. -: Gradual Location: abdomen Quality: aching Consistency: other Improves with: other Worsens with: other Associated Symptoms: other ED Review of Systems ROS: Stated complaint: ABD PAIN Other details as noted in HPI Constitutional: malaise. denies: fever Eyes: denies: eye discharge ENT: denies: congestion Cardiovascular: denies: syncope Gastrointestinal: abdominal pain, hematochezia. denies: hematemesis, melena Genitourinary: denies: dysuria Skin: denies: lesions Neurological: weakness Psychiatric: anxiety Hematological/Lymphatic: denies: easy bleeding ED Past Medical Hx - Past Medical History Hx Hypertension: No Hx Heart Attack/AMI: No Hx Liver Disease: No Hx Renal Disease: No Hx Sickle Cell Disease: No Hx Seizures: No Hx Asthma: No Hx COPD: No - Surgical History Hx Pacemaker: No Hx Internal Defibrillator: No - Social History Smoking Status: Current Every Day Smoker ED Physical Exam - General Limitations: No Limitations General appearance: alert, anxious - Head Head exam: Present: atraumatic, normocephalic - Eye Eye exam: Present: normal appearance, EOMI. Absent: nystagmus - ENT ENT exam: Present: normal exam, normal orophraynx, mucous membranes moist, normal external ear exam - Neck Neck exam: Present: normal inspection, full ROM. Absent: tenderness, meningismus - Respiratory Respiratory exam: Present: normal lung sounds bilaterally. Absent: respiratory distress - Cardiovascular Cardiovascular Exam: Present: regular rate, normal rhythm, normal heart sounds. Absent: bradycardia, tachycardia, irregular rhythm, systolic murmur, diastolic murmur, rubs, gallop - GI/Abdominal GI/Abdominal exam: Present: soft, tenderness, other (There is epigastric and right upper quadrant tenderness). Absent: distended, guarding, rebound, rigid, pulsatile mass - Rectal Rectal exam: Present: normal inspection, normal rectal tone, heme (-) stool, hemorrhoids (External hemorrhoids noted), other (Chaperoned by ARNIE WEAVER). Absent: heme (+) stool, black stool, bloody stool, fecal impaction - Extremities Exam Extremities exam: Present: normal inspection, full ROM, other (2+ pulses noted in the bilateral upper and lower extremities. There is no palpable cord. negative Homans sign. Muscular compartments are soft. The pelvis is stable.). Absent: pedal edema, calf tenderness - Back Exam Back exam: Present: normal inspection, full ROM. Absent: tenderness, CVA tenderness (R), CVA tenderness (L), paraspinal tenderness, vertebral tenderness - Neurological Exam Neurological exam: Present: alert, other (There is no facial droop. The tongue is midline. Extraocular movements are intact bilaterally. There is 5 out of 5 strength in bilateral upper and lower extremities. Sensation is intact to light touch bilateral upper and lower extremities. ). Absent: motor sensory deficit - Psychiatric Psychiatric exam: Present: anxious - Skin Skin exam: Present: warm, dry, intact, normal color. Absent: rash ED Course Vital Signs 11/05/19 11/05/19 11/05/19 12:17 12:52 13:06 Temperature 97.7 F Pulse Rate 82 80 Respiratory 18 18 13 Rate Blood Pressure Blood Pressure 138/85 [Left] O2 Sat by Pulse 100 100 Oximetry 11/05/19 11/05/19 11/05/19 13:15 13:31 13:45 Temperature Pulse Rate 75 74 72 Respiratory 12 11 L 15 Rate Blood Pressure Blood Pressure [Left] O2 Sat by Pulse 100 100 100 Oximetry 11/05/19 11/05/19 11/05/19 14:01 14:33 14:55 Temperature Pulse Rate 75 81 Respiratory 15 16 Rate Blood Pressure 127/72 Blood Pressure [Left] O2 Sat by Pulse 100 98 100 Oximetry 11/05/19 11/05/19 11/05/19 15:00 15:15 15:30 Temperature Pulse Rate 83 82 81 Respiratory 13 14 15 Rate Blood Pressure 127/70 127/70 144/66 Blood Pressure [Left] O2 Sat by Pulse 100 100 100 Oximetry 11/05/19 11/05/19 11/05/19 15:45 16:00 16:05 Temperature Pulse Rate 76 82 Respiratory 13 18 18 Rate Blood Pressure 121/71 140/71 Blood Pressure [Left] O2 Sat by Pulse 100 100 100 Oximetry - Reevaluation(s) Reevaluation #1: 11/05/19 14:06 Differential diagnosis, including but not limited to: Pancreatitis, intra- abdominal abscess, GERD, gastritis, hiatal hernia, pneumonia, pulmonary embolism, acute coronary syndrome, diverticulosis, external hemorrhoids Assessment and plan: 49-year-old female with a primary complaint of epigastric and right upper quadrant pain, burning substernal pain, resolved rectal bleeding. The patient is afebrile with reassuring vital signs. She is low risk for major adverse cardiac event as per the heart score. She is not tachycardic, tachypneic or hypoxic, however, given her recent hospital physician and surgery, and nonspecific nature of respiratory symptoms, d-dimer sent to risk stratify for pulmonary embolism, and is found to be elevated. CT scan of the chest is ordered. CT scan of the abdomen pelvis is ordered. Her symptoms will be treated supportively and symptomatically. We will reassess after her CT scans, repeat EKG, and repeat troponin have resulted. Reevaluation #2: 11/05/19 14:45 Care will be transferred to the oncoming ER physician, Dr. Matt Major to follow-up on CT scan chest, abdomen pelvis, repeat troponin, and repeat EKG. ED Medical Decision Making - Lab Data Result diagrams: 11/05/19 12:34 11/05/19 12:34 Vital Signs 11/05/19 11/05/19 12:17 12:52 Temperature 97.7 F Pulse Rate 82 Respiratory 18 18 Rate Blood Pressure 138/85 [Left] O2 Sat by Pulse 100 Oximetry Lab Results 11/05/19 11/05/19 11/05/19 Range/Units 12:34 12:34 12:34 WBC 8.4 (4.5-11.0) K/mm3 RBC 4.55 (3.65-5.03) M/mm3 Hgb 11.3 (10.1-14.3) gm/dl Hct 35.7 (30.3-42.9) % MCV 78 L (79-97) fl MCH 25 L (28-32) pg MCHC 32 (30-34) % RDW 15.1 (13.2-15.2) % Plt Count 246 (140-440) K/mm3 Lymph % (Auto) 22.5 (13.4-35.0) % Mchenry % (Auto) 5.8 (0.0-7.3) % Eos % (Auto) 1.5 (0.0-4.3) % Baso % (Auto) 0.6 (0.0-1.8) % Lymph # 1.9 (1.2-5.4) K/mm3 Mchenry # 0.5 (0.0-0.8) K/mm3 Eos # 0.1 (0.0-0.4) K/mm3 Baso # 0.0 (0.0-0.1) K/mm3 Seg Neutrophils % 69.6 (40.0-70.0) % Seg Neutrophils # 5.8 (1.8-7.7) K/mm3 PT 13.3 (12.2-14.9) Sec. INR 1.00 (0.87-1.13) D-Dimer 308.35 H (0-234) ng/mlDDU Sodium 139 (137-145) mmol/L Potassium 3.7 (3.6-5.0) mmol/L Chloride 102.9 (98-107) mmol/L Carbon Dioxide 23 (22-30) mmol/L Anion Gap 17 mmol/L BUN 9 (7-17) mg/dL Creatinine 0.8 (0.7-1.2) mg/dL Estimated GFR > 60 ml/min BUN/Creatinine Ratio 11 % Glucose 95 (65-100) mg/dL Lactic Acid (0.7-2.0) mmol/L Calcium 9.8 (8.4-10.2) mg/dL Magnesium 1.90 (1.7-2.3) mg/dL Total Bilirubin 0.20 (0.1-1.2) mg/dL AST 52 H (5-40) units/L ALT 29 (7-56) units/L Alkaline Phosphatase 175 H (35-129) units/L Total Creatine Kinase 69 (30-135) units/L Troponin T < 0.010 (0.00-0.029) ng/mL Total Protein 8.4 H (6.3-8.2) g/dL Albumin 4.4 (3.9-5) g/dL Albumin/Globulin Ratio 1.1 % Lipase 104 H (13-60) units/L 02/28/20 Range/Units 12:34 WBC (4.5-11.0) K/mm3 RBC (3.65-5.03) M/mm3 Hgb (10.1-14.3) gm/dl Hct (30.3-42.9) % MCV (79-97) fl MCH (28-32) pg MCHC (30-34) % RDW (13.2-15.2) % Plt Count (140-440) K/mm3 Lymph % (Auto) (13.4-35.0) % Mchenry % (Auto) (0.0-7.3) % Eos % (Auto) (0.0-4.3) % Baso % (Auto) (0.0-1.8) % Lymph # (1.2-5.4) K/mm3 Mchenry # (0.0-0.8) K/mm3 Eos # (0.0-0.4) K/mm3 Baso # (0.0-0.1) K/mm3 Seg Neutrophils % (40.0-70.0) % Seg Neutrophils # (1.8-7.7) K/mm3 PT (12.2-14.9) Sec. INR (0.87-1.13) D-Dimer (0-234) ng/mlDDU Sodium (137-145) mmol/L Potassium (3.6-5.0) mmol/L Chloride (98-107) mmol/L Carbon Dioxide (22-30) mmol/L Anion Gap mmol/L BUN (7-17) mg/dL Creatinine (0.7-1.2) mg/dL Estimated GFR ml/min BUN/Creatinine Ratio % Glucose (65-100) mg/dL Lactic Acid 1.30 (0.7-2.0) mmol/L Calcium (8.4-10.2) mg/dL Magnesium (1.7-2.3) mg/dL Total Bilirubin (0.1-1.2) mg/dL AST (5-40) units/L ALT (7-56) units/L Alkaline Phosphatase (35-129) units/L Total Creatine Kinase (30-135) units/L Troponin T (0.00-0.029) ng/mL Total Protein (6.3-8.2) g/dL Albumin (3.9-5) g/dL Albumin/Globulin Ratio % Lipase (13-60) units/L - EKG Data -: EKG Interpreted by Ak EKG shows normal: sinus rhythm Rate: normal - EKG Data 11/05/19 14:06 EKG today is unchanged from prior EKG Sinus rhythm, 74 bpm, normal axis, QTC 481 ms, left ventricular hypertrophy, low voltage in the high lateral leads. The EKG is abnormal, but it is not consistent with ST elevation myocardial infarction, it appears to be grossly unchanged when compared to prior EKG from September 2019 - Radiology Data Radiology results: pending, report reviewed, image reviewed Print Report Referring Physician: MILES CAVANAUGH Patient Name: HANNA JENA Date of : 1970 Sex: Female Report Date: 2019-11-05 Report Status: Finalized Findings [facility] [address] [place] [address] XRay Report Signed Patient: HANNA JEAN MR#: [id number] : 1970 Acct:[id number] Age/Sex: 49 / F ADM Date: 11/05/19 Loc: ED Attending Dr: Ordering Physician: MILES CAVANAUGH MD Date of Service: 11/05/19 Procedure(s): XR chest 1V ap Accession Number(s): [id number] cc: MILES CAVANAUGH MD Fluoro Time In Minutes: CHEST 1 VIEW 11/05/2019 12:29 PM INDICATION / CLINICAL INFORMATION: Epigastric pain, shortness of breath. COMPARISON: Chest x-ray 10/06/2019 FINDINGS: SUPPORT DEVICES: None. HEART / MEDIASTINUM: No significant abnormality. LUNGS / PLEURA: No significant pulmonary or pleural abnormality. No pneumothorax. ADDITIONAL FINDINGS: No significant additional findings. IMPRESSION: 1. No acute findings. Signer Name: Edgar Poole MD Signed: 11/05/2019 12:47 PM Workstation Name: [id number] Transcribed By: MIGUEL Dictated By: Edgar Poole MD Electronically Authenticated By: Edgar Poole MD Signed Date/Time: 11/05/19 124 DD/ 46 Critical care attestation.: If time is entered above; I have spent that time in minutes in the direct care of this critically ill patient, excluding procedure time. ED Disposition Is pt being admited?: No Does the pt Need Aspirin: No
--- NOTE | 2019-11-05 12:51 | XRay Report ---
CHEST 1 VIEW 11/05/2019 12:29 PM INDICATION / CLINICAL INFORMATION: Epigastric pain, shortness of breath. COMPARISON: Chest x-ray 10/06/2019 FINDINGS: SUPPORT DEVICES: None. HEART / MEDIASTINUM: No significant abnormality. LUNGS / PLEURA: No significant pulmonary or pleural abnormality. No pneumothorax. ADDITIONAL FINDINGS: No significant additional findings. IMPRESSION: 1. No acute findings. Signer Name: Edgar Poole MD Signed: 11/05/2019 12:47 PM Workstation Name: [id number]
[2019-11-05 12:58] LABS: Basophils % (Auto) 0.6 % (0.0-1.8); Eosinophils # (Auto) 0.1 K/mm3 (0.0-0.4); Eosinophils % (Auto) 1.5 % (0.0-4.3); Hematocrit 35.7 % (30.3-42.9); Hemoglobin 11.3 gm/dl (10.1-14.3); Lymphocytes # (Auto) 1.9 K/mm3 (1.2-5.4); Lymphocytes % (Auto) 22.5 % (13.4-35.0); Mean Corpuscular HGB Conc 32 % (30-34); Mean Corpuscular Volume 78 fl (79-97); Monocytes # (Auto) 0.5 K/mm3 (0.0-0.8); Monocytes % (Auto) 5.8 % (0.0-7.3); Platelet Count 246 K/mm3 (140-440); Red Blood Count 4.55 M/mm3 (3.65-5.03); Red Cell Distribution Width 15.1 % (13.2-15.2)
[2019-11-05 13:23] LABS: Alanine Aminotransferase 29 units/L (7-56); Albumin 4.4 g/dL (3.9-5); BUN/Creatinine Ratio 11; Blood Urea Nitrogen 9 mg/dL (7-17); Calcium 9.8 mg/dL (8.4-10.2); Hemolysis Index 1
[2019-11-05 14:59] LABS: Bilirubin,Urine NEG (Negative); Blood,Urine NEG (Negative); Color,Urine Straw (Yellow); Mucus,Urine FEW /HPF; Protein,Urine <15 mg/dL mg/dL (Negative); Urobilinogen,Urine < 2.0 mg/dL (<2.0); WBC,Urine < 1.0 /HPF (0.0-6.0)
[2019-11-05] MEDS ORDERED: fentaNYL 100 MCG/2 ML INJ IV ONE (15:11)
--- NOTE | 2019-11-05 15:18 | Cat Scan Report ---
CTA chest with contrast CT abdomen and pelvis with contrast INDICATION : sob epigastric paiun ruiq pain pancreatitgis. TECHNIQUE: Axial imaging performed through the chest, with contrast bolus timing set to maximize opa cification of the pulmonary arteries. 3-plane MIP reformatted images were obtained. Axial imaging als o performed through the abdomen and pelvis with contrast. All CT scans at this location are performed using CT dose reduction for ALARA by means of automated exposure control. 100 mL of intravenous contrast administered. COMPARISON: CT abdomen and pelvis from 10/06/2019 FINDINGS: CTA CHEST: Bolus: Contrast bolus timing is adequate. PTE: No filling defect is present to suggest PTE. Mediastinum: Heart and great vessels appear normal. No pathologic mediastinal adenopathy. Lungs: Lungs are clear. Bones: Degenerative changes in the spine with nothing acute. CT ABDOMEN/pelvis: The gallbladder is surgically absent. There is a trace amount of fluid in the gallbladder fossa regio n which likely represents resolving hematoma formation. There is also a trace amount of air in the sa me region which could presumably be postoperative as well. Mild biliary ductal prominence is fairly t ypical postcholecystectomy. The liver otherwise appears normal. The spleen, pancreas, adrenals, kidneys, and proximal GI tract appear unremarkable. Urinary bladder and reproductive organs are unremarkable with no pelvic free fluid and no acute colon ic abnormality identified. There is a primary collapsed appearance of the distal one half of the colo n. There are degenerative changes within the spine with nothing acute. IMPRESSION: 1. Negative for PTE. Clear lungs. 2. Trace presumed postoperative findings in the gallbladder fossa region as described above. Signer Name: Gunnar Orourke MD Signed: 11/05/2019 3:14 PM Workstation Name: [id number]
[2019-11-05 16:42] VITALS: BP 140/71
== END 2019-11-05 16:25 | disposition home or self-care (01) ==
LOC: ED 11:49
DX: R10.13 Epigastric pain (principal); R10.11 Right upper quadrant pain; R07.89 Other chest pain
CPT/HCPCS: 36415; 71045; 71275; 74177; 80053; 81001; 82140; 82271; 82550; 83690; 83735; 84484; 85025; 85379; 85610; 87086; 93005; 93010; 96374; 96375; 99285; J2270; J2405; J3010; J7030; Q9967